=== PATIENT | female | born 1945 | race Caucasian/White ===

== ENCOUNTER 2016-10-09 11:31 | Inpatient (IN) | payer OTHER ==
[~2016-10-09] VITALS: Ht 160 cm; Wt 59.9 kg
[~2016-10-09 11:31] MED LIST: ACET-2619 PO; ATOR10TA PO; ATRN INH; BISA10SU1 RC; BUDE0.5S NEB; CARV25TA PO; CLOP75TA PO; CLOT21CR6 VG; DEXT40GE PO; FOLI1TAB19 PO; FURO-570 PO; GLUC1PDS1 IM; LEVEMIR SUBQ; LEVO5SOL4 IV; LOSA100T25 PO; MAGN400S60 PO; METF500T64 PO; MULT-298 PO; NA P135N9 RC; POTA10TA10 PO; [UNRECOGNIZED DRUG - OTHER] SUBQ
--- NOTE | 2016-10-09 11:32 | NUR ---
PT PLACED IN BED 6 BY EMS
[2016-10-09] MEDS ORDERED: NACL 0.9% 500 ML IV ONE ×2 (11:37→12:45)
[2016-10-09 11:41] VITALS: BP 124/52
--- NOTE | 2016-10-09 11:57 | NUR ---
Patient being evaluated by physician at bedside.
[2016-10-09 12:12] LABS: BASOPHILS # (AUTO) 0.2 K/uL (0.00-0.22); BASOPHILS % (AUTO) 3.6 % (0.0-2.0); EOSINOPHILS # (AUTO) 0.2 K/uL (0-0.4); EOSINOPHILS % (AUTO) 2.3 % (0.0-4.0); HEMATOCRIT 33.9 % (36-48); LYMPHOCYTES % (AUTO) 29.1 % (20.5-51.1); MEAN CORPUSCULAR HEMOGLOBIN 28 pg (27-31); MEAN CORPUSCULAR HGB CONC 33 g/dL (33-37); MEAN CORPUSCULAR VOLUME 85 fL (80-94); MONOCYTES # (AUTO) 0.3 K/uL (0.8-1.0); NEUTROPHILS # (AUTO) 4.2 K/uL (1.8-7.7); PLATELET COUNT (AUTO) 391 K/uL (140-450); RED CELL DISTRIBUTION WIDTH 13.6 % (11.6-13.7); WHITE BLOOD COUNT (AUTO) 6.9 K/uL (4.8-10.8)
--- NOTE | 2016-10-09 12:33 | NUR ---
Patient appears to be resting comfortably in bed. BP 86/40 , P 86, R 18 O2 SAT 99&% Respirations even and unlabored. NOTIFIED ER MD DR SUAZO; AWARE. WILL CONTINUE TO MONITOR
[2016-10-09] MEDS ORDERED: NACL 0.9% 1,000 ML IV ONE (12:35)
[2016-10-09 12:36] LABS: ANION GAP 17.7 (8-16); CALCIUM 8.9 mg/dL (8.5-10.1); CARBON DIOXIDE 25.8 mmol/L (21-32); CHLORIDE 99 mmol/L (98-107); CREATININE 1.3 mg/dL (0.6-1.3); GLUCOSE 299 mg/dL (74-106); POTASSIUM 4.5 mmol/L (3.5-5.1); SODIUM SERUM 138 mmol/L (136-145); UREA NITROGEN, BLOOD 39 mg/dL (7-18)
[2016-10-09 12:37] LABS: ACETONE, SERUM TRACE (NEGATIVE)
[2016-10-09 12:37] LABS: BLOOD GAS HCO3 21.5 mmol/L; BLOOD GAS PCO2 32.2 mmHg (20-50); BLOOD GAS PH 7.442 (7.35-7.45); BLOOD GAS PO2 79.8 mmHg
[2016-10-09 12:38] LABS: BLOOD GAS O2 SAT% 96.3 % (92.0-98.5)
--- NOTE | 2016-10-09 12:38 | NUR ---
RECEIVED REPORT CRITICAL LAB FROM AMAYA ; LACTIC ACID H5.5, ACETONE + 3; ER MD DR SUAZO NOTIFIED.
[2016-10-09 12:40] LABS: ALANINE AMINOTRANSFERASE 19 U/L (12-78); ALKALINE PHOSPHATASE 97 U/L (46-116); ASPARTATE AMINOTRANSFERASE 13 U/L (15-37); TOTAL BILIRUBIN 0.2 mg/dL (0.0-1.0); TOTAL PROTEIN, SERUM 7.3 g/dL (6.4-8.2)
--- NOTE | 2016-10-09 13:35 | NUR ---
71 YO FEMALE BIB EMS FROM [facility] FOR HIGH BLOOD SUGAR. AWAKE AND ALERT ON ARRIVAL BS 316 DENIES N/V/D; SKIN IS PINK/WARM/DRY; AAOX4 WITH EVEN AND STEADY GAIT; LUNGS CLEAR BL; HR EVEN AND REGULAR; PT DENIES ANY FEVER, CP, SOB, OR COUGH AT THIS TIME; PATIENT STATES PAIN OF 0/10 AT THIS TIME; PATIENT POSITIONED FOR COMFORT; HOB ELEVATED; BEDRAILS UP X2; BED DOWN. ER MD MADE AWARE OF PT STATUS.
--- NOTE | 2016-10-09 14:51 | NUR ---
CALLED TO REPORT PT. RN WILL CALL BACK.
--- NOTE | 2016-10-09 14:57 | NUR ---
Patient will be admitted to care of DR Jude TORRES. Admited to TELE. Will go to [id number]. Belongings list completed. Report to JOSE L GRAY.
[2016-10-09 15:30] VITALS: BP 108/50
[2016-10-09] MEDS ORDERED: ACETAMINOPHEN 325 MG TAB PO PRN ×2 (15:45)
[2016-10-09] MEDS ORDERED: IPRATROPIUM 0.02% 0.5 MG/2.5 ML NEBU INH PRN (15:45)
[2016-10-09] MEDS ORDERED: GLUCAGON HUMAN RECOMBINANT 1 MG IM PRN (15:45)
[2016-10-09] MEDS ORDERED: BISACODYL 10 MG SUPP RC PRN (15:45)
[2016-10-09] MEDS ORDERED: SODIUM PHOSPHATE 118 ML ENEM RC PRN (15:45)
[2016-10-09] MEDS ORDERED: MAGNESIUM HYDROXIDE 2400 MG/30 ML UDC PO PRN (15:45)
[2016-10-09 15:50] LABS: APPEARANCE,URINE HAZY (CLEAR); BILIRUBIN,URINE NEGATIVE (NEGATIVE); BLOOD, URINE NEGATIVE (NEGATIVE); COLOR,URINE YELLOW (YELLOW); LEUKOCYTE ESTERASE ,URINE 2+ (NEGATIVE); NITRITE, URINE NEGATIVE (NEGATIVE); PROTEIN,URINE NEGATIVE (NEGATIVE); UGLUCOSE 1+ (NEGATIVE); UROBILINOGEN,URINE 0.2 EU/dL (0.2 - 1)
[2016-10-09] MEDS ORDERED: MORPHINE SULFATE 2 MG/ML SYR IVP PRN (15:55)
[2016-10-09] MEDS ORDERED: ONDANSETRON 4 MG/2 ML VIAL IVP PRN (15:55)
[2016-10-09] MEDS ORDERED: DEXTROSE 50% 50 ML SYR IVP PRN (15:55)
[2016-10-09] MEDS ORDERED: LORazepam 2 MG/ML VIAL IVP PRN (15:55)
[2016-10-09] MEDS ORDERED: HYDROcodone/APAP 5/325 MG 1 TAB TAB PO PRN (15:55)
--- NOTE | 2016-10-09 16:00 | NUR ---
Admitted from ED , with chief complaint of increased blood sugar TODAY AT THE SNF ([facility]). PT IS AAOX2-3. NO SOB NOTED. NO C/O PAIN AT THIS TIME. IV TO RT AC PATENT AND INTACT. CHEST CLEAR. ABDOMEN SOFT, BOWEL SOUNDS PRESENT. NO EDEMA NOTED. SKIN INTACT. WILL REPOSITION PT EVERY 2 HRS. PT IS A 71 y/o ,Female, Cooperative,oriented to call light, bed, phone,television, bathroom, smoking policy,visiting hours, procedures, ID bracelet on. Belongings list checked.
[2016-10-09 16:11] LABS: RBC,URINE NONE SEEN /HPF (0-5)
[2016-10-09 16:12] LABS: BACTERIA,URINE 2+ /HPF (None Seen); SQUAMOUS EPITHELIAL CELL,UR 0-3 (FEW) /LPF (0-3 (FEW)); WBC,URINE 60-80 /HPF (0-5); YEAST,URINE Moderate /HPF (None Seen)
[2016-10-09] MEDS ORDERED: GLUCAGON 1 MG VIAL IM PRN (16:15)
[2016-10-09] MEDS: BLOOD GLUCOSE MONITORING 1 DEV DEV FS SCH ×2 (16:30→21:09)
[2016-10-09] MEDS ORDERED: metFORMIN 500 MG TAB PO SCH (17:00)
[2016-10-09] MEDS: NACL 0.9% 1,000 ML IV SCH (17:45)
[2016-10-09] MEDS: INSULIN LISPRO SLIDING SCALE 100 UNITS/ML VIAL SUBQ PRN ×2 (17:49→21:08)
[2016-10-09] MEDS ORDERED: LEVOFLOXACIN 500 MG/D5W PREMIX 100 ML IV SCH (18:00)
--- NOTE | 2016-10-09 18:00 | NUR ---
PT SEEN BY DR. TORRES WITH NEW ORDERS.
--- NOTE | 2016-10-09 19:25 | NUR ---
PT AWAKE. NO SOB NOTED. NO COMPLAINTS MADE. ENDORSED TO NEXT SHIFT NURSE FOR CONTINUITY OF CARE.
--- NOTE | 2016-10-09 19:30 | NUR ---
RECEIVED PT AWAKE ON BED, ALERT AND ORIENTED BUT FORGETFUL, RT EYE BLIND SEC TO CATARACT, PLAN OF CARE DISCUSSED, SCD'S IN PLACE, SIDE RAILS UP AND BED ALARM ON, CALL LIGHT WITHIN REACH.
[2016-10-09] MEDS: BUDESONIDE 0.5 MG/2 ML NEBU INH SCH (19:59)
[2016-10-09 20:00] VITALS: BP 117/58
--- NOTE | 2016-10-09 20:30 | NUR ---
PT INCONTINENT WITH URINE, PERINEAL CARE DONE, ABLE TO TURN SELF FROM SIDE TO SIDE, KEPT CLEAN AND DRY, REPOSITION Q2H AND OFFLOAD PRESSURE AREAS, ALL NEEDS ATTENDED.
[2016-10-09] MEDS ORDERED: INSULIN DETEMIR 100 UNITS/ML 10 ML VIAL SUBQ SCH (21:00)
[2016-10-09] MEDS: CARVEDILOL 12.5 MG TAB PO SCH (21:06)
[2016-10-09] MEDS: ATORVASTATIN 20 MG TAB PO SCH (21:07)
[2016-10-09] MEDS: INSULIN DETEMIR 100 UNITS/ML 10 ML VIAL SUBQ SCH (21:09)
--- NOTE | 2016-10-09 21:10 | NUR ---
BLOOD SUGAR CHECKED WITH 287 RESULT, COVERAGE GIVEN, DUE MEDS GIVEN WITH EDUCATION PROVIDED, IVF INFUSING WELL.
[2016-10-10] VITALS: BP 102/48
--- NOTE | 2016-10-10 | NUR ---
PT SLEEPING ON AND OFF, VITAL SIGNS STABLE, DENIES ANY PAIN, NO SOB NOTED, INCONTINENT OF URINE, PERINEAL CARE DONE, IVF INFUSING WELL, CONTINUE TO MONITOR CLOSELY.
--- NOTE | 2016-10-10 01:30 | NUR ---
STILL AWAKE, ENCOURAGED TO GO TO SLEEP.
[2016-10-10] MEDS: NACL 0.9% 1,000 ML IV SCH ×4 (01:51→21:51)
--- NOTE | 2016-10-10 04:00 | NUR ---
PT ROUNDS MADE, PT SLEEPING, NO SIGNS OF DISTRESS, MONITORED CLOSELY.
--- NOTE | 2016-10-10 05:32 | NUR ---
BLOOD SUGAR CHECKED WITH 20 RESULT, PT VERBALLY RESPONSIVE, D50 1 AMP IVP GIVEN, ORANGE JUICE X1 CONSUMED BY PT, WILL RECHECKED BLOOD SUGAR, MONITORED CLOSELY.
--- NOTE | 2016-10-10 06:36 | NUR ---
REPEAT BLOOD SUGAR CHECKED DONE WITH 174 RESULT, PT EASILY AROUSABLE, VERBALLY RESPONSIVE, MONITORED CLOSELY.
[2016-10-10] MEDS: BLOOD GLUCOSE MONITORING 1 DEV DEV FS SCH ×4 (06:41→20:59)
[2016-10-10] MEDS: BUDESONIDE 0.5 MG/2 ML NEBU INH SCH ×2 (06:51→19:35)
--- NOTE | 2016-10-10 06:51 | NUR ---
PT REFUSED BREATHING TX NO SIGNS OF DISTRESS NOTED AT THIS TIME JOSE L NEAL NOTIFIED
[2016-10-10 06:54] LABS: BASOPHILS # (AUTO) 0.3 K/uL (0.00-0.22); BASOPHILS % (AUTO) 4.4 % (0.0-2.0); EOSINOPHILS # (AUTO) 0.4 K/uL (0-0.4); EOSINOPHILS % (AUTO) 4.9 % (0.0-4.0); HEMATOCRIT 32.9 % (36-48); HEMOGLOBIN 10.6 g/dL (12.0-16.0); LYMPHOCYTES # (AUTO) 2.8 K/uL (2.5-16.5); LYMPHOCYTES % (AUTO) 38.8 % (20.5-51.1); MEAN CORPUSCULAR HEMOGLOBIN 27 pg (27-31); MEAN CORPUSCULAR HGB CONC 32 g/dL (33-37); MEAN CORPUSCULAR VOLUME 84 fL (80-94); MONOCYTES # (AUTO) 0.6 K/uL (0.8-1.0); MONOCYTES % (AUTO) 7.7 % (1.7-9.3); NEUTROPHILS # (AUTO) 3.1 K/uL (1.8-7.7); NEUTROPHILS % (AUTO) 44.2 % (42.2-75.2); PLATELET COUNT (AUTO) 426 K/uL (140-450); RED BLOOD CELL COUNT(AUTO) 3.91 MIL/uL (4.20-5.40); RED CELL DISTRIBUTION WIDTH 13.4 % (11.6-13.7); WHITE BLOOD COUNT (AUTO) 7.2 K/uL (4.8-10.8)
--- NOTE | 2016-10-10 06:58 | NUR ---
PT REFUSED DUE BREATHING TX PER RT, RISK AND BENEFITS EXPLAINED, NO SOB NOTED, WILL ENDORSE TO AM SHIFT.
--- NOTE | 2016-10-10 07:15 | NUR ---
PT SLEEPING, EASILY AROUSABLE, NO DISTRESS NOTED, REPORT GIVEN TO RN ISAAC FOR CONTINUITY OF CARE.
[2016-10-10 07:28] LABS: ANION GAP 12.3 (8-16); CARBON DIOXIDE 26.3 mmol/L (21-32); CHLORIDE 109 mmol/L (98-107); CREATININE 0.7 mg/dL (0.6-1.3); POTASSIUM 3.6 mmol/L (3.5-5.1); SODIUM SERUM 144 mmol/L (136-145); UREA NITROGEN, BLOOD 21 mg/dL (7-18)
--- NOTE | 2016-10-10 07:30 | NUR ---
RECEIVED PT ON BED AAO WITH PERIODS OF CONFUSION. NO SOB NOTED. NO C/O PAIN AT THIS TIME. IV TO RT AC PATENT AND INTACT. CHEST DIMINISHED AIR ENTRY TO THE BASES. ABDOMEN SOFT, BOWEL SOUNDS PRESENT. NO EDEMA NOTED. SCD'S IN PLACE. INSTRUCTED PT TO CALL FOR ASSISTANCE, CALL LIGHT WITHIN REACH. PT VERBALIZED PARTIAL UNDERSTANDING.
[2016-10-10 08:00] VITALS: BP 113/54
[2016-10-10] MEDS: metFORMIN 500 MG TAB PO SCH ×2 (08:00→17:00)
[2016-10-10 08:16] LABS: GLUCOSE 21 mg/dL (74-106)
[2016-10-10] MEDS: LOSARTAN 50 MG TAB PO SCH (09:00)
[2016-10-10] MEDS ORDERED: POTASSIUM CHLORIDE 10 MEQ TABER PO SCH (09:00)
[2016-10-10] MEDS: CARVEDILOL 12.5 MG TAB PO SCH ×2 (09:00→20:59)
[2016-10-10] MEDS: FUROSEMIDE 40 MG TAB PO SCH (09:00)
[2016-10-10] MEDS ORDERED: NON-FORMULARY ITEM (Losartan Potassium 1 TAB) PO SCH (09:00)
[2016-10-10] MEDS: INSULIN DETEMIR 100 UNITS/ML 10 ML VIAL SUBQ SCH ×2 (09:00→21:00)
[2016-10-10] MEDS ORDERED: PIGGYBACK IV SCH (09:00)
[2016-10-10] MEDS ORDERED: CLOTRIMAZOLE (VAG) 1% 45 GM TUBE VG SCH (09:00)
[2016-10-10] MEDS ORDERED: LEVOFLOXACIN IV SCH (09:00)
[2016-10-10] MEDS ORDERED: DEXT 5% IV SCH (09:00)
--- NOTE | 2016-10-10 09:21 | NUR ---
PATIENT HAS BEEN SCREENED AND CATEGORIZED MODERATE NUTRITION RISK. PATIENT WILL BE SEEN WITHIN 3-5 DAYS OF ADMISSION. 10/12/16-10/14/[address] Addendum: 10/10/16 at [address] ERROR PATIENT HAS BEEN SCREENED AND CATEGORIZED HIGH NUTRITION RISK. PATIENT WILL BE SEEN WITHIN 1-2 DAYS OF ADMISSION. 10/10/16-10/11/[address]
[2016-10-10] MEDS: MULTIVITAMIN 1 TAB PO SCH (09:56)
[2016-10-10] MEDS: CALCIUM CARB/VIT-D 500 MG/200 IU 1 TAB PO SCH (09:57)
[2016-10-10] MEDS: FOLIC ACID 1 MG TAB PO SCH (09:57)
[2016-10-10] MEDS: CLOPIDOGREL 75 MG TAB PO SCH (09:57)
[2016-10-10] MEDS: POTASSIUM CHLORIDE 10 MEQ TABER PO SCH (09:57)
--- NOTE | 2016-10-10 11:43 | NUR ---
CALLED PT'S NEXT OF KIN GWYN STANTON( [phone]), NO ANSWER. VOICE MESSAGE LEFT. AWAITING FOR CALL BACK. ALSO CALLED JASON MAXIMINO ([phone]), NO ANSWER, VOICEMAIL BOX FULL UNABLE TO LEAVE VM. Addendum: 10/10/16 at 1254 by Allegra Chau RN DISREGARD ABOVE NOTES. WRONG PT.
[2016-10-10] MEDS: INSULIN LISPRO SLIDING SCALE 100 UNITS/ML VIAL SUBQ PRN ×3 (12:31→21:01)
--- NOTE | 2016-10-10 13:05 | NUR ---
SS NOTE: I SPOKE WITH PT'S SON, SURI REGARDING PT'S D/C PLAN. HE STATED THAT HE WOULD LIKE PT TO RETURN TO [facility] [place] [place] UPON DISCHARGE. HE ALSO STATED THAT HE WILL BE OUT OF TOWN FOR A CONFERENCE SO HIS , GLEN MEDELLIN ([phone]) CAN BE CONTACTED FOR CONSENT OR INFORMATION IF HE DOES NOT ANSWER HIS PHONE.
[2016-10-10 16:00] VITALS: BP_SYST 139; BP_SYST 145; BP_DIAS 61; BP_DIAS 81
[2016-10-10] MEDS: LEVOFLOXACIN 250 MG/D5 PREMIX 50 ML IV SCH (18:02)
--- NOTE | 2016-10-10 18:15 | NUR ---
PT'S IV CAME OFF WILL RESTART A NEW IV LINE SOON POSSIBLE.
--- NOTE | 2016-10-10 19:00 | NUR ---
UNABLE TO GET A NEW IV LINE, TRIED 3X BUT UNSUCCESSFUL. PT AWAKE. NO COMPLAINTS MADE. WILL ENDORSE TO NEXT SHIFT NURSE FOR CONTINUITY OF CARE.
--- NOTE | 2016-10-10 19:20 | NUR ---
RECD. RESTING IN BED, AWAKE, A/OX1, FORGETFUL. REORIENTED TO HOSPITAL SETTING. PLAN OF CARE FOR THE SHIFT DISCUSSED. INSTRUCTED TO CALL NURSE WHENEVER NEEDING HELP. VERBALIZED UNDERSTANDING. SAFETY MEASURES ENFORCED. DENIES PAIN 0/10.
--- NOTE | 2016-10-10 20:00 | NUR ---
Patient's Plan of Care was discussed and reviewed with FACILITIES PLANNER: DAVID LEE
--- NOTE | 2016-10-10 20:45 | NUR ---
NEW IV LINE INSERTED BY RESOURCE NURSE SHERLEY AT THE RIGHT FOREARM G22.
[2016-10-10] MEDS: ATORVASTATIN 20 MG TAB PO SCH (20:58)
--- NOTE | 2016-10-10 23:00 | NUR ---
TRANSFERRED TO ROOM 124A.
[2016-10-11] VITALS: BP 142/66
--- NOTE | 2016-10-11 02:30 | NUR ---
SLEEPING COMFORTABLY IN BED.
[2016-10-11] MEDS: BLOOD GLUCOSE MONITORING 1 DEV DEV FS SCH ×4 (06:38→21:45)
[2016-10-11] MEDS: INSULIN LISPRO SLIDING SCALE 100 UNITS/ML VIAL SUBQ PRN ×2 (06:40→12:07)
[2016-10-11 06:54] LABS: ANION GAP 15.1 (8-16); CALCIUM 7.5 mg/dL (8.5-10.1); CARBON DIOXIDE 22.3 mmol/L (21-32); CHLORIDE 106 mmol/L (98-107); CREATININE 0.7 mg/dL (0.6-1.3); GLUCOSE 378 mg/dL (74-106); POTASSIUM 4.4 mmol/L (3.5-5.1); SODIUM SERUM 139 mmol/L (136-145); UREA NITROGEN, BLOOD 15 mg/dL (7-18)
[2016-10-11 06:58] LABS: BASOPHILS # (AUTO) 0.1 K/uL (0.00-0.22); BASOPHILS % (AUTO) 2.4 % (0.0-2.0); EOSINOPHILS # (AUTO) 0.2 K/uL (0-0.4); EOSINOPHILS % (AUTO) 3.5 % (0.0-4.0); HEMATOCRIT 30.6 % (36-48); HEMOGLOBIN 9.8 g/dL (12.0-16.0); LYMPHOCYTES # (AUTO) 1.9 K/uL (2.5-16.5); LYMPHOCYTES % (AUTO) 31.4 % (20.5-51.1); MEAN CORPUSCULAR HEMOGLOBIN 27 pg (27-31); MEAN CORPUSCULAR HGB CONC 32 g/dL (33-37); MEAN CORPUSCULAR VOLUME 86 fL (80-94); MONOCYTES # (AUTO) 0.5 K/uL (0.8-1.0); MONOCYTES % (AUTO) 7.8 % (1.7-9.3); NEUTROPHILS # (AUTO) 3.3 K/uL (1.8-7.7); NEUTROPHILS % (AUTO) 54.9 % (42.2-75.2); PLATELET COUNT (AUTO) 300 K/uL (140-450); RED BLOOD CELL COUNT(AUTO) 3.58 MIL/uL (4.20-5.40); RED CELL DISTRIBUTION WIDTH 13.7 % (11.6-13.7)
[2016-10-11] MEDS: BUDESONIDE 0.5 MG/2 ML NEBU INH SCH ×2 (06:59→19:31)
--- NOTE | 2016-10-11 07:00 | NUR ---
AWAKE IN BED, CONDITION REMAIN STABLE. WILL ENDORSE TO AM NURSE FOR CONTINUITY OF CARE.
--- NOTE | 2016-10-11 07:03 | NUR ---
PT REFUSED BREATHING TX AND SAID SHE DOESN'T NEED IT. PT CURRENTLY ON RA SPO2 98%.
--- NOTE | 2016-10-11 07:10 | NUR ---
RECEIVED PATIENT REPORT AT BEDSIDE. PATIENT AWAKE AND ALERT. NO S/S OF DISTRESS NOTED. NO C/O OF PAIN. IV NOTED TO THE RIGHT FA WITH IVF INFUSING WELL. BED LOWERED WITH CALL LIGHT WITHIN REACH. WILL CONTINUE TO MONITOR
[2016-10-11 08:00] VITALS: BP 108/52
[2016-10-11] MEDS: POTASSIUM CHLORIDE 10 MEQ TABER PO SCH (09:00)
[2016-10-11] MEDS: FUROSEMIDE 40 MG TAB PO SCH (09:00)
[2016-10-11] MEDS: CARVEDILOL 12.5 MG TAB PO SCH ×2 (09:00→21:48)
[2016-10-11] MEDS: LOSARTAN 50 MG TAB PO SCH (09:00)
--- NOTE | 2016-10-11 09:00 | NUR ---
BP MEDS HELD DUE TO DECREASED BP. WILL REASSESS
[2016-10-11] MEDS: FOLIC ACID 1 MG TAB PO SCH (09:02)
[2016-10-11] MEDS: CALCIUM CARB/VIT-D 500 MG/200 IU 1 TAB PO SCH (09:03)
[2016-10-11] MEDS: metFORMIN 500 MG TAB PO SCH ×2 (09:03→17:00)
[2016-10-11] MEDS: MULTIVITAMIN 1 TAB PO SCH (09:04)
[2016-10-11] MEDS: CLOPIDOGREL 75 MG TAB PO SCH (09:05)
[2016-10-11] MEDS: INSULIN DETEMIR 100 UNITS/ML 10 ML VIAL SUBQ SCH ×2 (09:08→21:00)
--- NOTE | 2016-10-11 10:51 | NUR ---
PAGED DR MARTINEZ. WAITING FOR CALL BACK
--- NOTE | 2016-10-11 10:56 | NUR ---
PER DR MARTINEZ, SHE IS UNSURE IF SHE CAN SEE THE PATIENT TODAY BUT SHE WILL DEFINITELY SEE THE PATIENT TOMORROW
[2016-10-11] MEDS: NACL 0.9% 1,000 ML IV SCH ×3 (11:43→23:25)
--- NOTE | 2016-10-11 14:31 | NUR ---
10/11/16 RD INITIAL ASSESSMENT COMPLETED PLEASE REFER TO NUTRITION ASSESSMENT UNDER CARE ACTIVITY FOR ESTIMATED NUTRITIONAL NEEDS. 1. CONTINUE 60G CONSISTENT CARBOHYDRATE, CARDIAC DIET 2. RD TO FOLLOW-UP 3-5 DAYS; MODERATE RISK JULIEN KING RD
[2016-10-11 16:00] VITALS: BP 130/67
--- NOTE | 2016-10-11 17:00 | NUR ---
BLOOD SUGAR 44. PATIENT AWAKE AND ALERT. NO S/S OF DISTRESS NOTED. PATIENT REFUSE TO HAVE D50. RISK OF HAVING LOW BLOOD SUGAR EXPLAINED TO THE PATIENT. PATIENT VERBALIZED UNDERSTANDING. PATIENT REQUESTED TO HAVE JUICE INSTEAD. PATIENT PROVIDED WITH ORANGE JUICE. WILL REASSESS
--- NOTE | 2016-10-11 17:35 | NUR ---
BLOOD SUGAR AT 78. NO S/S OF DISTRESS NOTED
[2016-10-11] MEDS: LEVOFLOXACIN 250 MG/D5 PREMIX 50 ML IV SCH (18:01)
--- NOTE | 2016-10-11 19:30 | NUR ---
PATIENT REPORT GIVEN AT BEDSIDE. PATIENT ENDORSED IN STABLE CONDITION
--- NOTE | 2016-10-11 19:40 | NUR ---
RECEIVED BEDSIDE REPORT FROM YAMIL DOMINGO. PATIENT IS AAOX2 AND RESTING IN BED. NO SIGNS OF ACUTE DISTRESS OR SOB NOTED. PATIENT IS LEGALLY BLIND IN RIGHT EYE. THERE IS A #22 IN THE PATIENT'S RIGHT FOREARM RECEIVING NORMAL SALINE AT 100 ML/HR. SITE IS DRY, INTACT, AND PATENT. THERE ARE SCDS IN PLACE FOR VTE PROPHYLAXIS. PATIENT'S NEEDS MET AT THIS TIME. SAFETY MEASURES ENFORCED, WITH CALL LIGHT WITHIN PATIENT'S REACH. WILL CONTINUE TO MONITOR PATIENT.
[2016-10-11] MEDS: ATORVASTATIN 20 MG TAB PO SCH (21:48)
--- NOTE | 2016-10-11 21:53 | NUR ---
PATIENT TOLERATED DUE MEDICATIONS. BLOOD SUGAR IS 137. EXPLAINED INDICATIONS AND BENEFITS OF LEVEMIR. PATIENT REFUSED SCHEDULED LEVEMIR SUBQ. PATIENT'S NEEDS MET AT THSI TIME. CALL LIGHT WITHIN REACH. CONTINUE TO MONITOR PATIENT.
--- NOTE | 2016-10-11 22:32 | NUR ---
PATIENT VOIDED MODERATE AMOUNT OF CLEAR YELLOW URINE OF NORMAL ODOR. PERINEAL CARE PROVIDED. PATIENT ABLE TO SELF REPOSITION HERSELF FOR COMFORT. PATIENT'S NEEDS MET AT THIS TIME. CALL LIGHT WITHIN REACH. CONTINUE TO MONITOR PATIENT.
[2016-10-12] VITALS: BP 121/56
--- NOTE | 2016-10-12 | NUR ---
PATIENT RESTING COMFORTABLY IN BED, BUT CAN BE AROUSED BY NAME. VITAL SIGNS ARE STABLE. NO REPORTS OF PAIN OR DISCOMFORT AT THIS TIME. CALL LIGHT WITHIN REACH. CONTINUE TO MONITOR PATIENT.
--- NOTE | 2016-10-12 02:00 | NUR ---
PATIENT IS RESTING COMFORTABLY IN BED WITH NO S/S OF ACUTE DISTRESS OR SOB NOTED. SAFETY MEASURES ENFORCED, WITH CALL LIGHT WITHIN REACH. CONTINUE TO MONITOR PATIENT.
--- NOTE | 2016-10-12 03:30 | NUR ---
ROUNDED ON PATIENT. PATIENT IS RESTING COMFORTABLY IN BED WITH NO SIGNS OF DISTRESS NOTED. CALL LIGHT WITHIN REACH. CONTINUE TO MONITOR PATIENT.
--- NOTE | 2016-10-12 04:50 | NUR ---
PATIENT VOIDED MODERATE AMOUNT OF CLEAR YELLOW URINE. PERINEAL CARE PROVIDED. REPOSITIONED PATIENT FOR COMFORT. PATIENT'S NEEDS MET AT THIS TIME. CALL LIGHT WITHIN REACH. CONTINUE TO MONITOR PATIENT.
[2016-10-12 06:08] LABS: BASOPHILS # (AUTO) 0.2 K/uL (0.00-0.22); BASOPHILS % (AUTO) 3.6 % (0.0-2.0); EOSINOPHILS # (AUTO) 0.3 K/uL (0-0.4); EOSINOPHILS % (AUTO) 6.2 % (0.0-4.0); HEMATOCRIT 29.6 % (36-48); HEMOGLOBIN 9.3 g/dL (12.0-16.0); LYMPHOCYTES # (AUTO) 2.5 K/uL (2.5-16.5); LYMPHOCYTES % (AUTO) 42.6 % (20.5-51.1); MEAN CORPUSCULAR HEMOGLOBIN 27 pg (27-31); MEAN CORPUSCULAR HGB CONC 31 g/dL (33-37); MEAN CORPUSCULAR VOLUME 86 fL (80-94); MONOCYTES # (AUTO) 0.4 K/uL (0.8-1.0); MONOCYTES % (AUTO) 7.9 % (1.7-9.3); NEUTROPHILS # (AUTO) 2.2 K/uL (1.8-7.7); NEUTROPHILS % (AUTO) 39.7 % (42.2-75.2); PLATELET COUNT (AUTO) 303 K/uL (140-450); RED BLOOD CELL COUNT(AUTO) 3.46 MIL/uL (4.20-5.40); RED CELL DISTRIBUTION WIDTH 13.6 % (11.6-13.7); WHITE BLOOD COUNT (AUTO) 5.6 K/uL (4.8-10.8)
[2016-10-12 06:33] LABS: ANION GAP 8.6 (8-16); CALCIUM 7.3 mg/dL (8.5-10.1); CHLORIDE 112 mmol/L (98-107); CREATININE 0.5 mg/dL (0.6-1.3); GLUCOSE 52 mg/dL (74-106); POTASSIUM 3.6 mmol/L (3.5-5.1); SODIUM SERUM 144 mmol/L (136-145); UREA NITROGEN, BLOOD 10 mg/dL (7-18)
[2016-10-12] MEDS: BLOOD GLUCOSE MONITORING 1 DEV DEV FS SCH ×4 (06:39→21:19)
--- NOTE | 2016-10-12 06:40 | NUR ---
PATIENT'S BLOOD SUGAR IS 66. NO INSULIN COVERAGE NEEDED AT THIS TIME. OFFERED PATIENT SNACK. PATIENT ACCEPTED MED CRACKERS, MILK, AND APPLE SAUCE. TOLERATED WELL. NO S/S OF DISTRESS OR SOB NOTED. CALL LIGHT WITHIN REACH. CONTINUE TO MONITOR PATIENT.
--- NOTE | 2016-10-12 07:08 | NUR ---
PATIENT IN STABLE CONDITION. ALL NEEDS ATTENDED TO DURING SHIFT. ENDORSED CONTINUITY OF CARE TO BRIGID DOMINGO.
--- NOTE | 2016-10-12 07:10 | NUR ---
RECEIVED PT REPORT AT BEDSIDE FROM NIGHT NURSE. PT IS AAOX4 AND SHOWS NO S/S OF DISTRESS ON ROOM AIR. PT DENIES PAIN. PT'S SKIN IS INTACT. PT HAS IV ON THE R ARM WITH IVF'S RUNNING. PT WAS EDUCATED ON THE POC FOR TODAY AND VERBALIZED UNDERSTANDING. THE BED IS LOWERED WITH CALL LIGHT WITHIN REACH. WILL CONTINUE TO MONITOR.
[2016-10-12] MEDS: BUDESONIDE 0.5 MG/2 ML NEBU INH SCH ×2 (07:25→18:47)
[2016-10-12 08:00] VITALS: BP 142/74
[2016-10-12] MEDS: FUROSEMIDE 40 MG TAB PO SCH (08:25)
[2016-10-12] MEDS: CALCIUM CARB/VIT-D 500 MG/200 IU 1 TAB PO SCH (08:25)
[2016-10-12] MEDS: metFORMIN 500 MG TAB PO SCH (08:25)
--- NOTE | 2016-10-12 08:25 | NUR ---
ADMINISTERED SCHEDULED MEDICATIONS. PT BS WAS 244. PT SWALLOWED ONE MEDICATION AT A TIME. PT TOLERATED ACTIVITY WELL. WILL CONTINUE TO MONITOR.
[2016-10-12] MEDS: FOLIC ACID 1 MG TAB PO SCH (08:26)
[2016-10-12] MEDS: MULTIVITAMIN 1 TAB PO SCH (08:26)
[2016-10-12] MEDS: LOSARTAN 50 MG TAB PO SCH (08:26)
[2016-10-12] MEDS: POTASSIUM CHLORIDE 8 MEQ TABER PO SCH (08:26)
[2016-10-12] MEDS: CLOPIDOGREL 75 MG TAB PO SCH (08:27)
[2016-10-12] MEDS: CARVEDILOL 12.5 MG TAB PO SCH ×2 (08:27→21:18)
[2016-10-12] MEDS ORDERED: INSULIN DETEMIR 100 UNITS/ML 10 ML VIAL SUBQ SCH (09:00)
[2016-10-12] MEDS ORDERED: ALENDRONATE SODIUM 70 MG TAB PO SCH (09:00)
[2016-10-12] MEDS: NACL 0.9% 1,000 ML IV SCH ×2 (10:00→21:28)
--- NOTE | 2016-10-12 10:32 | NUR ---
PT IS IN BED SLEEPING AND SHOWS NO S/S OF DISTRESS ON ROOM AIR.
--- NOTE | 2016-10-12 11:30 | NUR ---
PT IS INCONTINENT OF URINE. PT BED LINENS WERE CHANGED. PT WAS GIVEN PERINEAL CARE. ALL NEEDS WERE MET. PT TOLERATED ACTIVITY WELL. THE BED IS LOWERED WITH CALL LIGHT WITHIN REACH. PT IS DOING A WORD SEARCH PUZZLE NOW AND SHOWS NO S/S OF DISTRESS ON ROOM AIR.
[2016-10-12] MEDS: INSULIN LISPRO SLIDING SCALE 100 UNITS/ML VIAL SUBQ PRN (12:12)
--- NOTE | 2016-10-12 12:20 | NUR ---
PT SITTING COMFORTABLY IN BED EATING LUNCH. PT'S BED IS LOWERED WITH CALL LIGHT WITHIN REACH. WILL CONTINUE TO MONITOR.
--- NOTE | 2016-10-12 12:30 | NUR ---
PAGED DR MARTINEZ REGARDING TIME OF ARRIVAL ONTO UNIT. WILL WAIT FOR CALL BACK.
--- NOTE | 2016-10-12 13:20 | NUR ---
PT BEING SEEN BY DR. ART.
--- NOTE | 2016-10-12 15:15 | NUR ---
PT IS IN ROOM SLEEPING AND SHOWS NO S/S OF DISTRESS ON ROOM AIR.
[2016-10-12 16:00] VITALS: BP 130/66
--- NOTE | 2016-10-12 16:45 | NUR ---
PT IS AWAKE AOX4 AND SHOWS NO S/S OF DISTRESS ON ROOM AIR. PT IS WATCHING TV AND HAS CALL LIGHT WITHIN REACH. ALL NEEDS FOR PT WERE MET. PT BED IS LOWERED. WILL CONTINUE TO MONITOR.
[2016-10-12] MEDS: LEVOFLOXACIN 250 MG/D5 PREMIX 50 ML IV SCH (18:11)
--- NOTE | 2016-10-12 18:18 | NUR ---
ADMINISTERED SCHEDULED MEDICATIONS. PT ALSO STATED SHE HAD NOT HAD A BM TODAY OR SINCE SHE WAS ADMITTED. MILK OF MAGNESIA WAS ADMINISTERED. ALL OF PT NEEDS WERE MET. PT IS AWAKE AOX4 AND SHOWS NO S/S OF DISTRESS NOTED ON ROOM AIR. PT BED IS LOWERED WITH CALL LIGHT WITHIN REACH.
--- NOTE | 2016-10-12 19:26 | NUR ---
GAVE REPORT TO NIGHT NURSE AT BEDSIDE. PT IS RESTING IN BED AND SHOWS NO S/S/ OF DISTRESS ON ROOM AIR. PT WAS ENDORSED IN STABLE CONDITION.
--- NOTE | 2016-10-12 19:50 | NUR ---
SEEN PT AWAKE, ALERT AND ORIENTED DOING CROSSWORD PUZZLE. INITIAL ASSESSMENT DONE. VITAL SIGNS CHECKED. PT DENIES ANY PAIN. PT ASKING WHAT IS HER ACTIVITY ORDER. TOLD HER WILL CHECK WHAT THE DOCTOR ORDERED. PT STATES SHE USES WALKER BEFORE. ASKED PT WHEN WAS THE LAST TIME SHE HAD BM. SHE SAID BEFORE SHE CAME. WILL CHECK FOR ANY PRN ANTI-CONSTIPATION MEDICINE. PT SAID SHE WAS GIVEN MOM EARLIER. SAFETY ENSURED. CALL LIGHT W/IN REACH. PT SAID SHE NEEDS TO BE CHANGED. PERICARE RENDERED. TEACHINGS PROVIDED ABOUT REPOSITIONING. PT SAID SHE CAN TURN ON HER RIGHT SIDE. ASSISTED PT ON HER RIGHT SIDE.
[2016-10-12 20:00] VITALS: BP 139/69
[2016-10-12] MEDS: ATORVASTATIN 20 MG TAB PO SCH (21:18)
--- NOTE | 2016-10-12 21:18 | NUR ---
SEEN PT AWAKE. BLOOD SUGAR CHECKED:75. PT SAID " I NEED SOME SNACKS." WILL GIVE PT HER BEDTIME SNACKS. MEDICATIONS GIVEN W/ TEACHINGS. PT VERBALIZED UNDERSTANDING. CALL LIGHT W/IN REACH.
--- NOTE | 2016-10-13 00:45 | NUR ---
PT CALLED AND SAID SHE WANTS DIAPER CHANGED. ROBERTO RIOS CAME TO RENDER PERICARE.
[2016-10-13 04:10] VITALS: BP 154/72
--- NOTE | 2016-10-13 04:15 | NUR ---
SEEN PT AWAKE. VITAL SIGNS CHECKED. PT DENIES ANY PAIN. PT STATES " I NEED TO BE CHANGED". PT AHD SMEAR OF BROWN STOOL. PT ALSO PASSING GAS. PERICARE RENDERED. PT REPOSITIONED ON HERT RT SIDE. ELLA;L LIGHT W/IN REACH.
[2016-10-13 06:00] LABS: BASOPHILS # (AUTO) 0.1 K/uL (0.00-0.22); BASOPHILS % (AUTO) 1.1 % (0.0-2.0); EOSINOPHILS # (AUTO) 0.3 K/uL (0-0.4); EOSINOPHILS % (AUTO) 3.9 % (0.0-4.0); HEMATOCRIT 27.7 % (36-48); HEMOGLOBIN 9.2 g/dL (12.0-16.0); LYMPHOCYTES # (AUTO) 2.4 K/uL (2.5-16.5); LYMPHOCYTES % (AUTO) 29.4 % (20.5-51.1); MEAN CORPUSCULAR HEMOGLOBIN 28 pg (27-31); MEAN CORPUSCULAR HGB CONC 33 g/dL (33-37); MEAN CORPUSCULAR VOLUME 85 fL (80-94); MONOCYTES # (AUTO) 0.6 K/uL (0.8-1.0); MONOCYTES % (AUTO) 7.5 % (1.7-9.3); NEUTROPHILS # (AUTO) 4.9 K/uL (1.8-7.7); NEUTROPHILS % (AUTO) 58.1 % (42.2-75.2); PLATELET COUNT (AUTO) 274 K/uL (140-450); RED BLOOD CELL COUNT(AUTO) 3.27 MIL/uL (4.20-5.40); RED CELL DISTRIBUTION WIDTH 13.4 % (11.6-13.7); WHITE BLOOD COUNT (AUTO) 8.3 K/uL (4.8-10.8)
[2016-10-13] MEDS ORDERED: ALENDRONATE SODIUM 70 MG TAB PO SCH (06:00)
--- NOTE | 2016-10-13 06:00 | NUR ---
PT CALLED AND WANTS TO BE CHANGED. ROBERTO RENDERED SMITHA CARE TO PATIENT.
[2016-10-13 06:32] LABS: ALANINE AMINOTRANSFERASE 16 U/L (12-78); ALBUMIN 2.1 g/dL (3.4-5.0); ALKALINE PHOSPHATASE 74 U/L (46-116); ANION GAP 10.8 (8-16); ASPARTATE AMINOTRANSFERASE 18 U/L (15-37); CALCIUM 7.4 mg/dL (8.5-10.1); CARBON DIOXIDE 25.5 mmol/L (21-32); CHLORIDE 110 mmol/L (98-107); CREATININE 0.7 mg/dL (0.6-1.3); GLUCOSE 71 mg/dL (74-106); POTASSIUM 4.3 mmol/L (3.5-5.1); SODIUM SERUM 142 mmol/L (136-145); TOTAL BILIRUBIN 0.1 mg/dL (0.0-1.0); TOTAL PROTEIN, SERUM 5.3 g/dL (6.4-8.2); UREA NITROGEN, BLOOD 11 mg/dL (7-18)
--- NOTE | 2016-10-13 06:50 | NUR ---
SEEN PT AWAKE. FOSAMAX PO GIVEN W/ TEACHINGS. PT AWAITING FOR HER BREAKFAST TRAY. PT DENIES ANY OTHER NEEDS. CALL LIGHT W/IN REACH.
[2016-10-13] MEDS: BUDESONIDE 0.5 MG/2 ML NEBU INH SCH ×2 (07:09→19:40)
--- NOTE | 2016-10-13 07:30 | NUR ---
PATIENT AWAKE AND ALERT, DENIES PAIN, LYING IN BED IN COMFORTABLE POSITION.
[2016-10-13] MEDS: BLOOD GLUCOSE MONITORING 1 DEV DEV FS SCH ×3 (07:36→16:34)
--- NOTE | 2016-10-13 07:45 | NUR ---
REPORT GIVEN TO DAYSHIFT NURSE.
[2016-10-13 08:00] VITALS: BP 142/60
[2016-10-13] MEDS ORDERED: INSULIN DETEMIR 100 UNITS/ML 10 ML VIAL SUBQ SCH (09:00)
[2016-10-13] MEDS: FOLIC ACID 1 MG TAB PO SCH (09:30)
[2016-10-13] MEDS: FUROSEMIDE 40 MG TAB PO SCH (09:31)
[2016-10-13] MEDS: POTASSIUM CHLORIDE 8 MEQ TABER PO SCH (09:31)
[2016-10-13] MEDS: CALCIUM CARB/VIT-D 500 MG/200 IU 1 TAB PO SCH (09:31)
[2016-10-13] MEDS: MULTIVITAMIN 1 TAB PO SCH (09:31)
[2016-10-13] MEDS: LOSARTAN 50 MG TAB PO SCH (09:31)
[2016-10-13] MEDS: CARVEDILOL 12.5 MG TAB PO SCH (09:32)
[2016-10-13] MEDS: CLOPIDOGREL 75 MG TAB PO SCH (09:32)
[2016-10-13] MEDS: INSULIN LISPRO SLIDING SCALE 100 UNITS/ML VIAL SUBQ PRN ×3 (09:43→17:14)
[2016-10-13] MEDS: NACL 0.9% 1,000 ML IV SCH (10:32)
--- NOTE | 2016-10-13 11:53 | NUR ---
PATIENT SLEEPING, LYING IN BED COMFORTABLY
--- NOTE | 2016-10-13 13:31 | NUR ---
Social Service Note: I faxed patient's medical information to [facility].
--- NOTE | 2016-10-13 14:45 | NUR ---
I spoke with Atif regarding patient discharge back to [facility] today and education given as well regarding importance of hydration for his mother and better blood sugar control, and he verbalized understanding. he also request to speak with upper caser regarding transportation.
--- NOTE | 2016-10-13 14:46 | NUR ---
Social Service Note: Per [place] from [facility] , patient may return to room 11B, accepting physician is Ronald Cedillo, she stated patient may be transfer to their facility any time.
--- NOTE | 2016-10-13 15:04 | NUR ---
CM NOTE SPOKE WITH THE PATIENT'S SECONDARY INSURANCE [facility] September AND SHE SAID FOR [facility] AUTH# [id number]. SPOKE WITH PATIENT'S SON SURI [phone] AND INFORMED HIM THAT PATIENT HAS A SECONDARY INSURANCE WHO WILL COVER THE TRANSPORTATION TO SNF. SPOKE WITH JAK OF [facility] [phone] TO SET UP PATIENT TRANSPORT FINAL [employer] TIME 1830 GOING TO [facility], ACCEPTING DR. JUANCHO YADAV, NUMBER TO CALL FOR REPORT [phone]. NURSE WILLIAM MIX.
--- NOTE | 2016-10-13 15:10 | NUR ---
I spoke with Isabelle ulloa mgr regarding patient son Atif requesting to talk to her regarding transportation.
[2016-10-13 16:00] VITALS: BP 142/55
[2016-10-13] MEDS ORDERED: LEVO750T2 PO (16:10)
[2016-10-13] MEDS ORDERED: INSU-1188 SC (16:12)
[2016-10-13] MEDS: LEVOFLOXACIN 250 MG/D5 PREMIX 50 ML IV SCH (17:08)
--- NOTE | 2016-10-13 19:20 | NUR ---
SBAR REPORT GIVEN TO SALESPERSON FLOOR COVERINGS RN, PATIENT ALERT ORIENTED, PENDING DISCHARGE TO SNF, WAITING FOR THE TRANSPORTATION
--- NOTE | 2016-10-13 19:30 | NUR ---
RECEIVED REPORT FROM DAY RN AT BEDSIDE, PATIENT IS AWAKE AAOX3, FORGETFUL, PATIENT IN STABLE CONDITION, RESTING COMFORTABLE IN BED, PATIENT AWAITING HUMID SYSTEM OPERATOR FOR TRANSPORTATION TO SNF. SAFETY MEASURES CHECKED, CALL LIGHT WITHIN REACH. WILL CONTINUE TO MONITOR.
--- NOTE | 2016-10-13 20:15 | NUR ---
PATIENT PICKED UP FOR TRANSPORT TO SNF, IV REMOVED TIP IN TACT, WRIST BANDS REMOVED, PATIENT IN STABLE CONDITION. BELONGINGS IN POSSESSION, PAPERWORK SIGNED.
== END 2016-10-13 20:15 | DRG 637 ==
LOC: MED 11:31 → MTU 14:57
PROVIDERS: ADMIT Preventive Medicine Preventive Medicine/Occupational Environmental Medicine; ATTEND Preventive Medicine Preventive Medicine/Occupational Environmental Medicine
DX: E10.65 Type 1 diabetes mellitus with hyperglycemia (principal); E43 Unspecified severe protein-calorie malnutrition; N39.0 Urinary tract infection, site not specified; J44.9 Chronic obstructive pulmonary disease, unspecified; D64.9 Anemia, unspecified; E78.5 Hyperlipidemia, unspecified; E83.52 Hypercalcemia; H54.41 Blindness, right eye, normal vision left eye; I11.0 Hypertensive heart disease with heart failure; I50.9 Heart failure, unspecified; H35.30 Unspecified macular degeneration; I25.10 Atherosclerotic heart disease of native coronary artery without angina pectoris; Z88.6 Allergy status to analgesic agent; Z88.1 Allergy status to other antibiotic agents; Z88.8 Allergy status to other drugs, medicaments and biological substances; Z88.5 Allergy status to narcotic agent; Z88.0 Allergy status to penicillin; Z91.041 Radiographic dye allergy status; Z79.899 Other long term (current) drug therapy
CPT/HCPCS: 36415; 36600; 71010; 80048; 80053; 81001; 82009; 82803; 82948; 83605; 85025; 85651; 86140; 87040; 87081; 87086; 94640; 96360; 96361; 99291; J1815; J1956; J7030; J7042; J7626; Q0092

== ENCOUNTER 2018-09-03 22:00 | Emergency (ER) | payer OTHER ==
[~2018-09-03] VITALS: Ht 157.5 cm; Wt 68.0 kg
[~2018-09-03 22:00] MED LIST changes: +DEXT31GE2 PO; -DEXT40GE PO; +GLU500 PO; +INSU100S53 SC; -LEVEMIR SUBQ; +LEVO750T2 PO; -LOSA100T25 PO; +LOSA100T51 PO; -METF500T64 PO; -POTA10TA10 PO; +POTA10TE30 PO
[2018-09-03 22:06] VITALS: BP 143/53
--- NOTE | 2018-09-03 22:10 | NUR ---
72/F BIBA FROM [facility] FOR HYPERGLYCEMIA. PER EMS, PT WITH ELEVATED POC GLUCOSE TOO HIGH TO READ, WAS GIVEN 20 UNITS REGULAR INSULIN, LAST GLUCOSE 315. PT C/O MILD CONSTIPATION. PT DENIES FEVER, CP, SOB, N/V/D. PT ARRIVES TO ED, AOX4, GCS 15, SKIN NORMAL WARM DRY, RR EVEN AND UNLABORED. LUNG SOUNDS CLEAR BL. BS ACTIVE X4, ABD SOFT ROUND NONTENDER. HX CHF, HTN, DM, RESP FAILURE, AKF, ENTEROCOLITIS, R EYE DEGENERATION
--- NOTE | 2018-09-03 22:10 | NUR ---
PT BIBA TO BED 8
--- NOTE | 2018-09-03 22:11 | NUR ---
BLOOD GLUCOSE 319 AT THIS TIME.
[2018-09-03] MEDS ORDERED: NACL 0.9% 1,000 ML IV ONE (22:29)
[2018-09-03] MEDS ORDERED: SIME1SOL PO (22:34)
[2018-09-03] MEDS ORDERED: DOCU-299 PO (22:34)
[2018-09-03] MEDS ORDERED: LACT25CA PO (22:34)
[2018-09-03] MEDS ORDERED: ASCO500T45 PO (22:34)
[2018-09-03] MEDS ORDERED: INSU100S54 SC (22:34)
[2018-09-03] MEDS ORDERED: CRAN450T5 PO (22:34)
[2018-09-03 22:59] LABS: ANION GAP 10.7 (8-16); CARBON DIOXIDE 31.7 mmol/L (21-32); CHLORIDE 97 mmol/L (98-107); CREATININE 1.3 mg/dL (0.6-1.3); GLUCOSE 302 mg/dL (74-106); POTASSIUM 4.4 mmol/L (3.5-5.1); SODIUM SERUM 135 mmol/L (136-145); UREA NITROGEN, BLOOD 44 mg/dL (7-18)
--- NOTE | 2018-09-04 01:36 | NUR ---
PT LAYING IN BED, RR EVEN AND UNLABORED. VSS. BLOOD GLUCOSE 155 AT THIS TIME. PT PROVIDED WITH SUGAR FREE SNACKS AND WATER. DR KENDRICK MADE AWARE.
--- NOTE | 2018-09-04 03:47 | NUR ---
PT SLEEPING, AROUSABLE TO NAME, VSS, RR EVEN AND UNLABORED. BLOOD GLUCOSE 213 AT THIS TIME. ALL NEEDS MET.
--- NOTE | 2018-09-04 05:45 | NUR ---
CALLED [facility], GAVE REPORT, NOTIFIED THAT PT IS COMING BACK, ETA 30 MINS.
--- NOTE | 2018-09-04 06:00 | NUR ---
PT LAYING IN BED, RR EVEN AND UNLABORED. VSS. BLOOD GLUCOSE 319, DR KENDRICK MADE AWARE.
[2018-09-04] MEDS ORDERED: INSULIN REGULAR, HUMAN 100 UNIT/ML VIAL SUBQ ONE (06:05)
[2018-09-04] MEDS ORDERED: NACL 0.9% 1,000 ML IV ONE (06:05)
[2018-09-04 06:33] VITALS: BP 125/40
--- NOTE | 2018-09-04 06:33 | NUR ---
Patient discharged with v/s stable. Written and verbal after care instructions given and explained. Patient verbalized understanding. All questions addressed prior to discharge. Advised to follow up with PMD. Pt transferred back to [facility] via [facility] transport at this time.
--- NOTE | 2018-09-04 06:33 | NUR ---
BLOOD GLUCOSE 347 AT THIS TIME AFTER HUMULIN R 5 UNITS SUBQ AND 500ML NS IV BOLUS INFUSED, ER MD MADE AWARE. PER ER MD, OK FOR DISCHARGE
== END 2018-09-04 06:33 ==
LOC: MED 22:00
DX: E11.65 Type 2 diabetes mellitus with hyperglycemia (principal); E86.0 Dehydration; I11.0 Hypertensive heart disease with heart failure; I50.9 Heart failure, unspecified; Z79.4 Long term (current) use of insulin; Z79.899 Other long term (current) drug therapy; Z79.01 Long term (current) use of anticoagulants; Z88.5 Allergy status to narcotic agent; Z88.6 Allergy status to analgesic agent; Z79.1 Long term (current) use of non-steroidal anti-inflammatories (NSAID); Z88.8 Allergy status to other drugs, medicaments and biological substances
CPT/HCPCS: 36415; 80048; 82948; 99283; J1815; J7030

== ENCOUNTER 2019-05-21 19:21 | Inpatient (IN) | payer OTHER ==
[~2019-05-21] VITALS: Ht 157.5 cm; Wt 81.6 kg
[~2019-05-21 19:21] MED LIST changes: +ASCO500T45 PO; -ATRN INH; -BUDE0.5S NEB; +CRAN450T5 PO; -DEXT31GE2 PO; +DOCU-299 PO; -FOLI1TAB19 PO; -GLU500 PO; +INSU100S54 SC; +LACT25CA PO; -LEVO5SOL4 IV; -LEVO750T2 PO; -POTA10TE30 PO; +SIME1SOL PO
[2019-05-21 19:30] VITALS: BP 161/81
--- NOTE | 2019-05-21 19:31 | NUR ---
PT TO BED #8
--- NOTE | 2019-05-21 19:45 | NUR ---
73 YEAR OLD BIBA FROM [facility] FOR COMPLAINTS OF FLU-LIKE SYMPTOMS AND SHORTNESS OF BREATHE. PER EMS PT WAS PLACED ON 6L O2 NC AT 6L, AND THEY STATED THAT SHE NORMALLY IS NOT ON O2. PATIENT SPO2 95%, RR 18. PATIENT AOX3 (NAME, , YEAR), GCS 15. BREATHNG EVEN AND UNLABORED. PATIENT LUNGS CRACKLES BILATERALLY. SKIN WARM AND DRY. BED IN LOWEST OSITION, LOCKED, BED RAIL UPX1. PMH - HTN, DM2, AR, CP, RF, CHF, PNA, C-DIFF
--- NOTE | 2019-05-21 20:15 | NUR ---
TEMPERATURE 101.1, DR RODGERS MADE AWARE
[2019-05-21] MEDS ORDERED: NACL 0.9% IV ONE (20:23)
[2019-05-21] MEDS ORDERED: IBUPROFEN 600 MG TAB PO ONE (20:25)
--- NOTE | 2019-05-21 20:25 | NUR ---
PATIENT ALERT AND AWAKE, BREATHING EVEN AND UNLABORED
--- NOTE | 2019-05-21 21:03 | NUR ---
MULTIPLE ATTEMPTS MADE AT GETTING IV LINE MADE
--- NOTE | 2019-05-21 21:15 | NUR ---
EKG PERFORMED AT BEDSIDE
[2019-05-21 21:18] LABS: BASOPHILS # (AUTO) 0.1 K/uL (0.00-0.22); BASOPHILS % (AUTO) 0.7 % (0.0-2.0); EOSINOPHILS % (AUTO) 0.1 % (0.0-4.0); HEMOGLOBIN 10.8 g/dL (12.0-16.0); LYMPHOCYTES # (AUTO) 0.4 K/uL (2.5-16.5); LYMPHOCYTES % (AUTO) 6.2 % (20.5-51.1); MEAN CORPUSCULAR HEMOGLOBIN 27 pg (27-31); MEAN CORPUSCULAR HGB CONC 32 g/dL (33-37); MEAN CORPUSCULAR VOLUME 83.3 fL (80-94); MONOCYTES # (AUTO) 0.7 K/uL (0.8-1.0); MONOCYTES % (AUTO) 10.1 % (1.7-9.3); NEUTROPHILS # (AUTO) 5.7 K/uL (1.8-7.7); NEUTROPHILS % (AUTO) 82.9 % (42.2-75.2); PLATELET COUNT (AUTO) 295 K/uL (140-450); RED BLOOD CELL COUNT(AUTO) 4.08 MIL/uL (4.20-5.40); RED CELL DISTRIBUTION WIDTH 14.6 % (11.6-13.7); WHITE BLOOD COUNT (AUTO) 6.9 K/uL (4.8-10.8)
[2019-05-21 21:32] LABS: ANION GAP 10.2 (8-16); CARBON DIOXIDE 31.8 mmol/L (21-32); CHLORIDE 105 mmol/L (98-107); CREATININE 0.9 mg/dL (0.6-1.3); GLUCOSE 267 mg/dL (74-106); SODIUM SERUM 143 mmol/L (136-145); UREA NITROGEN, BLOOD 24 mg/dL (7-18)
[2019-05-21 21:35] LABS: PROTHROMBIN TIME 9.9 secs (10.8-13.4)
[2019-05-21 21:38] LABS: ALBUMIN 2.3 g/dL (3.4-5.0); ASPARTATE AMINOTRANSFERASE 14 U/L (15-37); TOTAL BILIRUBIN 0.2 mg/dL (0.0-1.0)
[2019-05-21] MEDS ORDERED: LEVOFLOXACIN 750 MG/D5W PREMIX 150 ML IV ONE (22:00)
[2019-05-21] MEDS ORDERED: cefTRIAXone 1,000 MG VIAL ONE (22:06)
--- NOTE | 2019-05-21 22:34 | NUR ---
PATIENT ALERT AND AWAKE, BREATHING EVEN AND UNLABORED
[2019-05-21 22:53] LABS: APPEARANCE,URINE CLEAR (CLEAR); BILIRUBIN,URINE 1+ (NEGATIVE); BLOOD, URINE 3+ (NEGATIVE); COLOR,URINE YELLOW (YELLOW); LEUKOCYTE ESTERASE ,URINE TRACE (NEGATIVE); NITRITE, URINE NEGATIVE (NEGATIVE); UGLUCOSE NEGATIVE (NEGATIVE)
[2019-05-21 23:13] LABS: RBC,URINE 11-20 (MOD) /HPF (0-5); URINE AMORPHOUS URATE 4+ /HPF (None Seen)
[2019-05-21] MEDS ORDERED: metroNIDAZOLE 500 MG/NS PREMIX 100 ML IV SCH (23:40)
[2019-05-21] MEDS ORDERED: ONDANSETRON 4 MG/2 ML VIAL IM/IVP PRN (23:40)
[2019-05-21] MEDS ORDERED: KETOROLAC 15 MG/ML VIAL IVP PRN (23:40)
[2019-05-21] MEDS ORDERED: ALBUTEROL SULFATE/IPRATROPIU 3 ML SOL IH PRN (23:40)
[2019-05-21] MEDS ORDERED: DOCUSATE SODIUM 100 MG GELCAP PO PRN (23:40)
[2019-05-22 00:35] LABS: MAGNESIUM 2.1 mg/dL (1.8-2.4); PHOSPHORUS 3.7 mg/dL (2.5-4.9)
--- NOTE | 2019-05-22 00:39 | NUR ---
PT LAYING IN BED, RR EVEN AND UNLABORED. SPO2 94% ON 2L NC, RR 20 EVEN AND UNLABORED. PRODUCTIVE COUGH NOTED. ALL NEEDS MET AT THIS TIME.
--- NOTE | 2019-05-22 00:40 | NUR ---
RECEIVED REPORT FROM ELISABETH ER NURSE. PATIENT IS AWAKE, ALERT, AND COOPERATIVE. ADMITTING DIAGNOSIS PNA. RESPIRATION EVEN UNLABORED ON 2L NC O2. NO DISTRESS NOTED. SKIN IS WARM AND DRY. REDNESS ON SACRAL AREA NOTED. IV PATENT AND INTACT. RIGHT EYE BLINDNESS NOTED. HEART RATE REGULAR. S1&S2 NOTED. LUNGS SOUNDS CRACKLES ON AUSCULTATION. BOWEL SOUNDS PRESENT IN ALL 4 QUADRANTS. LAST BM 05/22/19. MRSA SCREEN DONE. VITALS WERE TAKEN. ORIENT PATIENT ROOM, STAFF, AND CALL LIGHT. PLAN OF CARE WAS DISCUSSED. ALL SAFETY MEASURES IN PLACE. BED IS AT LOW POSITION. CALL LIGHT WITHIN REACH AND VERBALIZES ITS USE. WILL CONTINUE TO MONITOR
--- NOTE | 2019-05-22 00:40 | NUR ---
Patient will be admitted to care of DR MCGRATH. Admited to TELE. Will go to room 115. Belongings list completed. Report to NATALIA DOMINGO.
--- NOTE | 2019-05-22 01:00 | NUR ---
PATIENT IV ACCIDENTALLY GOT PULLED WHEN BEING CHANGED. NO ACTIVE BLEEDING SEEN. CANNULA TIP INTACT. WILL INSERT A NEW ONE.
--- NOTE | 2019-05-22 01:20 | NUR ---
INSERTED IV TO THE LEFT FOREARM 24G. TOLERATED IT WELL. WILL CONTINUE TO MONITOR
[2019-05-22] MEDS: NACL 0.9% 1,000 ML IV SCH ×2 (01:22→23:38)
[2019-05-22] MEDS ORDERED: MAGNESIUM HYDROXIDE 2400 MG/30 ML UDC PO PRN (01:30)
[2019-05-22] MEDS ORDERED: DEXTROSE 50% 50 ML SYR IVP PRN (01:30)
[2019-05-22] MEDS ORDERED: SODIUM PHOSPHATE 118 ML ENEM RC PRN (01:30)
[2019-05-22] MEDS ORDERED: BISACODYL 10 MG SUPP RC PRN (01:30)
[2019-05-22 01:43] VITALS: BP 104/48
[2019-05-22] MEDS ORDERED: FUROSEMIDE 40 MG/4 ML VIAL IVP SCH (02:30)
[2019-05-22 04:00] VITALS: BP 127/100
--- NOTE | 2019-05-22 04:15 | NUR ---
VITALS WERE TAKEN. PATIENT IN STABLE CONDITION. NO DISTRESS NOTED. WILL CONTINUE TO MONITOR.
[2019-05-22] MEDS: INSULIN LISPRO SLIDING SCALE 100 UNITS/ML VIAL SUBQ PRN ×4 (06:34→22:21)
[2019-05-22] MEDS: BLOOD GLUCOSE MONITORING 1 DEV DEV FS SCH ×4 (06:34→21:00)
[2019-05-22 06:50] LABS: BASOPHILS % (AUTO) 0.8 % (0.0-2.0); EOSINOPHILS % (AUTO) 0.1 % (0.0-4.0); HEMATOCRIT 30.9 % (36-48); HEMOGLOBIN 9.8 g/dL (12.0-16.0); LYMPHOCYTES # (AUTO) 0.6 K/uL (2.5-16.5); MEAN CORPUSCULAR HEMOGLOBIN 27 pg (27-31); MEAN CORPUSCULAR HGB CONC 32 g/dL (33-37); MEAN CORPUSCULAR VOLUME 84.5 fL (80-94); MONOCYTES # (AUTO) 0.7 K/uL (0.8-1.0); MONOCYTES % (AUTO) 13.1 % (1.7-9.3); PLATELET COUNT (AUTO) 257 K/uL (140-450); RED BLOOD CELL COUNT(AUTO) 3.65 MIL/uL (4.20-5.40); RED CELL DISTRIBUTION WIDTH 14.8 % (11.6-13.7); WHITE BLOOD COUNT (AUTO) 5.4 K/uL (4.8-10.8)
--- NOTE | 2019-05-22 07:05 | NUR ---
ENDORSED PATIENT TO DAY SHIFT NURSE. PATIENT IN STABLE CONDITION.
--- NOTE | 2019-05-22 07:08 | NUR ---
PATIENT IS AAOX3, COOPERATIVE. RESPIRATION EVEN UNLABORED ON 2L NC O2. NO DISTRESS NOTED. VISIBLE CHEST RISE NOTED. ON TELE MONITORING. SKIN IS WARM AND DRY. REDNESS ON SACRAL AREA NOTED. IV PATENT AND INTACT. RIGHT EYE BLINDNESS NOTED. LUNGS SOUNDS CRACKLES ON AUSCULTATION. BOWEL SOUNDS PRESENT IN ALL 4 QUADRANTS. LAST BM 05/22/19. PLAN OF CARE WAS DISCUSSED. ALL SAFETY MEASURES IN PLACE. BED IS AT LOW POSITION. CALL LIGHT WITHIN REACH, BED ALARM IN PLACE. CONTACT AND DROPLET PRECAUTIONS IN PLACE. PATIENT IS STRICT I&O. WILL CONTINUE TO MONITOR.
[2019-05-22 07:32] LABS: ANION GAP 12.7 (8-16); CARBON DIOXIDE 28.7 mmol/L (21-32); CHLORIDE 108 mmol/L (98-107); CREATININE 0.9 mg/dL (0.6-1.3); GLUCOSE 264 mg/dL (74-106); POTASSIUM 4.4 mmol/L (3.5-5.1); SODIUM SERUM 145 mmol/L (136-145); UREA NITROGEN, BLOOD 28 mg/dL (7-18)
[2019-05-22 07:43] LABS: MAGNESIUM 1.9 mg/dL (1.8-2.4)
[2019-05-22 08:00] VITALS: BP 117/60
[2019-05-22] MEDS: ALBUTEROL SULFATE/IPRATROPIU 3 ML SOL IH SCH ×3 (08:05→19:55)
--- NOTE | 2019-05-22 08:25 | NUR ---
DR. MCGRATH AND THE RESIDENT DOCTORS MADE ROUNDS
--- NOTE | 2019-05-22 08:32 | NUR ---
PATIENT HAS BEEN SCREENED AND CATEGORIZED MODERATE NUTRITION RISK. PATIENT WILL BE SEEN WITHIN 3-5 DAYS OF ADMISSION. 05/24/19 05/26/[address]
[2019-05-22] MEDS: DOCUSATE SODIUM 100 MG GELCAP PO SCH ×2 (08:39→22:08)
[2019-05-22] MEDS: FUROSEMIDE 40 MG TAB PO SCH (08:39)
[2019-05-22] MEDS: CARVEDILOL 12.5 MG TAB PO SCH ×2 (08:40→22:09)
[2019-05-22] MEDS: LACTOBACILLUS RHAMNOSUS GG 1 EACH CAP PO SCH (08:40)
[2019-05-22] MEDS: OSELTAMIVIR PHOSPHATE 75 MG CAP PO SCH ×2 (08:40→22:08)
[2019-05-22] MEDS: LOSARTAN 50 MG TAB PO SCH (08:41)
[2019-05-22] MEDS: CLOPIDOGREL 75 MG TAB PO SCH (08:41)
[2019-05-22 08:44] LABS: CHOL/HDL RATIO 2.8 (1-4.5)
[2019-05-22] MEDS: metroNIDAZOLE 500 MG/NS PREMIX 100 ML IV SCH ×2 (08:54→17:03)
--- NOTE | 2019-05-22 08:55 | NUR ---
GIVEN MORNING MEDICATIONS PO. SUBQ HEPARIN IN THE L UA. PLATELET IS 257. GIVEN WITH APPLESAUCE. GIVEN FLAGYL VIA IVPB. ROCEPHIN VIA IVPB. EXPLAINED TO PATIENT MED. PATIENT VERBALIZED UNDERSTANDING. BED IN LOW POSITION. CALL LIGHT IS WITHIN REACH. WILL CONTINUE TO MONITOR
[2019-05-22] MEDS ORDERED: NON-FORMULARY ITEM (Losartan Potassium 1 TAB) PO SCH (09:00)
--- NOTE | 2019-05-22 11:40 | NUR ---
VITAL SIGNS TAKEN. BLOOD GLUCOSE CHECK: 215. WILL GIVE INSULIN
[2019-05-22 12:00] VITALS: BP 146/36
--- NOTE | 2019-05-22 12:52 | NUR ---
GIVEN 4 UNITS OF INSULIN FOR BLOOD GLUCOSE 215 IN THE RIGHT UA. EXPLAINED TO PATIENT MED. PATIENT VERBALIZED UNDERSTANDING. WILL CONTINUE TO MONITOR
--- NOTE | 2019-05-22 13:34 | NUR ---
PATIENT IS SLEEPING AT THIS TIME. NO SIGNS OF DISTRESS NOTED. BED IN LOW POSITION. CALL LIGHT IS WITHIN REACH. WILL CONTINUE TO MONITOR
--- NOTE | 2019-05-22 13:42 | NUR ---
PATIENT IS HAVING BREATHING TREATMENT AT THIS TIME.
[2019-05-22] MEDS: BENZONATATE 100 MG CAPLF PO PRN (14:59)
--- NOTE | 2019-05-22 15:00 | NUR ---
GIVEN BENZONATATE FOR COUGH. EXPLAINED TO PATIENT MED. PATIENT VERBALIZED UNDERSTANDING. WILL CONTINUE TO MONITOR. BED IN LOW POSITION. CALL LIGHT IS WITHIN REACH.
--- NOTE | 2019-05-22 15:51 | NUR ---
DC [age] YRS OLD FEMALE PATIENT [place] [facility]. PT HAS A HX OF CHF, COPD, CAD, CEREBRAL PALSY HISTORY OF C-DIFF AND DM . PT IS WHEELCHAIR-BOUND C/O VOMITING AND DIARRHEA STOOL SENT FOR C-DIFF . CHEST XR SHOWED MILD BIBASILAR ATELECTASIS ADMINISTERED IVF, IV FLAGYL , ROCEPHIN AND LEVAQUIN . PLACE PT ON ISOLATION PER PROTOCOL. TAMIFLU FOR INFLUENZA . DC PLAN [place] GO [place] [facility] [place]. CM TO FOLLOW. Addendum: 05/25/19 at 0958 by Ivan Beasley MAIDA faxed clinical packet to [facility] [phone]. MAIDA contacted Aleena from [facility] [phone] to confirm packet was received. MAIDA attempted to arrange for patient to return to [facility], but Aleena stated that there were no isolation beds available. MAIDA informed Charge Nurse Alejandrina. MAIDA/CM will follow as needed. Addendum: 05/25/19 at 1111 by Ivan Beasley SW was contacted by laron Hayes at [facility] [phone]. Per Abigail, patient is able to return. MAIDA contacted Genesis from [facility] [phone] for authorization. Transportation auth: #[id number] Facility auth: #[id number] MAIDA informed charge nurse Alejandrina to assist in setting transportation. MAIDA/CM will follow up as needed. Addendum: 05/25/19 at 1328 by Ivan THOMAS MAIDA contacted Aleena from [facility] [phone]. Patient will be going to room 14B under attending physician Dr. Ronald Frederick. Addendum: 05/25/19 at 1348 by Ivan THOMAS MAIDA spoke to son Lazaro Donaldson who stated that he refused to return to [facility]. MAIDA faxed clinicals to [facility] and spoke to Melissa [phone]. Melissa stated that patient would be accepted for skilled stay but not fci in room [address] Reyes. MAIDA contacted Lazaro Donaldson [phone] and left voicemail to discuss discharge plan. Addendum: 05/25/19 at 1431 by Ivan THOMAS MAIDA was contacted by Lazaro Donaldson who stated that he is amenable to discharge to [facility]. Charge Nurse Alejandrina was made aware and is arranging transportation. No further needs identified.
[2019-05-22 16:00] VITALS: BP 142/64
--- NOTE | 2019-05-22 16:06 | NUR ---
Benefits Counselor Note: Basic Screen: Yes High Risk DC Screen Chief [place]: SURI MEDELLIN Rosenberg Relationship: SON Pre-Admission Living Arrangements: SNF Prior ADL Needs Assistance Current Home Health Name/Tel: N/A Current DME/02 Name/Tel: WHEELCHAIR, OXYGEN Current Hospice Name/Tel: N/A Current Dialysis Name/Tel: N/A Healthcare Decision Maker: Next of Kin Advance Directive No Physician Orders for Life Sustaining Treatment Form No Patient/Family Have Educational Needs No Discipline: Case Mgt/Social Svcs Tentative Discharge Plan/Destination: SNF/ECF Will require assistance post discharge: No Referred to Research Development Manager: No Tentative Discharge Plan Summary: Patient is a 73-year-old female admitted for pneumonia. Patient has PMHX of congestive heart failure, coronary artery disease, history of CVA, cerebral palsy, type 1 diabetes, essential hypertension dyslipedemia, COPD, right eye blindness, arthritis, and history of cdiff. Patient was admitted from [facility]. SW contacted Donald from [facility] to verify demographics [phone]. Per Donald, patient is chcf and is on a bed hold. Patient needs assistance with all ADLs and is alert at baseline but not oriented. Donald stated that patient is able to communicate her needs through one word answers. PAtient's tentative discharge plan is to return to [facility]. No further needs identified. Signature: KATRIN Abbott Date: May 22, 2019 Time: 16:05
--- NOTE | 2019-05-22 17:04 | NUR ---
GIVEN FLAGYL AND 4 UNITS OF INSULIN FOR BLOOD GLUCOSE 234 IN THE RIGHT UA. EXPLAINED TO PATIENT MEDS. PATIENT VERBALIZED UNDERSTANDING. WILL CONTINUE TO MONITOR
--- NOTE | 2019-05-22 19:12 | NUR ---
ENDORSED PATIENT TO RADIATION PROTECTION ENGINEER NURSE FOR CONTINUITY OF CARE. PATIENT IS IN STABLE CONDITION
--- NOTE | 2019-05-22 19:13 | NUR ---
RECD. SITTING ON BED, AWAKE, A/OX3. RESPIRATION EVEN AND UNLABORED. ON 02 AT 2 LITERS VIA N/C, 02 SAT - 93%. BLIND IN THE RIGHT EYE. NS AT 10 ML/HR INFUSING, LEFT HAND G22. CHIEF OPERATOR HYDROFORMER ASSISTING PATIENT TO EAT DINNER. SAFETY MEASURES ENFORCED. BED IN THE LOWEST POSITION. BED ALARM ON. PLAN OF CARE FOR THE SHIFT DISCUSSED. JUST NOD. DENIES PAIN 0/10.
[2019-05-22 20:00] VITALS: BP 161/59
--- NOTE | 2019-05-22 20:00 | NUR ---
Patient's Plan of Care was discussed and reviewed with PERIOPERATIVE EDUCATOR: DAVID LEE
[2019-05-22] MEDS ORDERED: INSULIN LANTUS 100 UNITS/ML 10 ML VIAL SUBQ SCH (21:00)
--- NOTE | 2019-05-22 21:00 | NUR ---
SLEEPING COMFORTABLY IN BED.
--- NOTE | 2019-05-22 22:00 | NUR ---
SNACK GIVEN FOR THE NIGHT, ATE 100%.
[2019-05-22] MEDS: ATORVASTATIN 20 MG TAB PO SCH (22:08)
[2019-05-22] MEDS: guaiFENesin 600 MG TABER PO SCH (22:10)
[2019-05-23] VITALS: BP 130/46
--- NOTE | 2019-05-23 | NUR ---
SLEEPING COMFORTABLY IN BED.
[2019-05-23] MEDS: metroNIDAZOLE 500 MG/NS PREMIX 100 ML IV SCH ×2 (01:38→09:12)
[2019-05-23 04:00] VITALS: BP 160/73
[2019-05-23] MEDS: BENZONATATE 100 MG CAPLF PO PRN ×2 (04:55→12:04)
--- NOTE | 2019-05-23 04:55 | NUR ---
WITH PERSISTENT DRY COUGHING, MEDICATED WITH TESSALON PERLES ORDERED BY .
--- NOTE | 2019-05-23 06:00 | NUR ---
NO COUGHING NOTED. RESTING IN BED COMFORTABLY.
[2019-05-23] MEDS: BLOOD GLUCOSE MONITORING 1 DEV DEV FS SCH ×4 (06:26→21:18)
[2019-05-23] MEDS: INSULIN LISPRO SLIDING SCALE 100 UNITS/ML VIAL SUBQ PRN ×4 (06:28→20:29)
--- NOTE | 2019-05-23 07:00 | NUR ---
CONDITION REMAIN STABLE. NO LOOSE BM DURING SHIFT, ONLY SOFT SMALL BM. CONDITION REMAIN STABLE. WILL ENDORSE TO AM SHIFT NURSE FOR CONTINUITY OF CARE.
[2019-05-23 07:01] LABS: BASOPHILS % (AUTO) 1.2 % (0.0-2.0); EOSINOPHILS % (AUTO) 0.1 % (0.0-4.0); HEMATOCRIT 32.3 % (36-48); HEMOGLOBIN 10.2 g/dL (12.0-16.0); LYMPHOCYTES # (AUTO) 1.2 K/uL (2.5-16.5); LYMPHOCYTES % (AUTO) 33.4 % (20.5-51.1); MEAN CORPUSCULAR HEMOGLOBIN 27 pg (27-31); MEAN CORPUSCULAR HGB CONC 32 g/dL (33-37); MEAN CORPUSCULAR VOLUME 85.1 fL (80-94); MONOCYTES # (AUTO) 0.5 K/uL (0.8-1.0); NEUTROPHILS # (AUTO) 1.8 K/uL (1.8-7.7); NEUTROPHILS % (AUTO) 50.3 % (42.2-75.2); PLATELET COUNT (AUTO) 241 K/uL (140-450); RED CELL DISTRIBUTION WIDTH 14.9 % (11.6-13.7); WHITE BLOOD COUNT (AUTO) 3.6 K/uL (4.8-10.8)
[2019-05-23 07:27] LABS: MAGNESIUM 2.1 mg/dL (1.8-2.4); PHOSPHORUS 3.9 mg/dL (2.5-4.9)
--- NOTE | 2019-05-23 07:30 | NUR ---
RECEIVED REPORT FROM NIGHT NURSE. PATIENT IS IN BED, AWAKE, ALERT, ORIENTED X3. NO S/S OF DISTRESS NOTED. IV INTACT AND PATENT TO LEFT FOREARM. CALL LIGHT WITHIN REACH. PLANS OF CARE DISCUSSED. BED ALARM ON, BED IN LOW POSITION. SAFETY MEASURES IN PLACE.
[2019-05-23] MEDS: ALBUTEROL SULFATE/IPRATROPIU 3 ML SOL IH SCH ×3 (07:39→19:48)
[2019-05-23 07:49] LABS: ANION GAP 11.1 (8-16); CARBON DIOXIDE 28.2 mmol/L (21-32); CHLORIDE 105 mmol/L (98-107); CREATININE 1.1 mg/dL (0.6-1.3); POTASSIUM 4.3 mmol/L (3.5-5.1); SODIUM SERUM 140 mmol/L (136-145); UREA NITROGEN, BLOOD 30 mg/dL (7-18)
[2019-05-23 08:00] VITALS: BP 147/63
[2019-05-23 08:21] LABS: GLUCOSE 430 mg/dL (74-106)
[2019-05-23] MEDS: DOCUSATE SODIUM 100 MG GELCAP PO SCH ×2 (09:10→20:22)
[2019-05-23] MEDS: CLOPIDOGREL 75 MG TAB PO SCH (09:10)
[2019-05-23] MEDS: FUROSEMIDE 40 MG TAB PO SCH (09:10)
[2019-05-23] MEDS: LACTOBACILLUS RHAMNOSUS GG 1 EACH CAP PO SCH (09:10)
[2019-05-23] MEDS: guaiFENesin 600 MG TABER PO SCH ×2 (09:10→20:23)
[2019-05-23] MEDS: LOSARTAN 50 MG TAB PO SCH (09:11)
[2019-05-23] MEDS: CARVEDILOL 12.5 MG TAB PO SCH ×2 (09:11→20:23)
[2019-05-23] MEDS: OSELTAMIVIR PHOSPHATE 75 MG CAP PO SCH ×2 (09:11→20:22)
--- NOTE | 2019-05-23 09:30 | NUR ---
PATIENT RECEIVED ALL AM MEDICATIONS. PATIENT ABLE TO TOLERATE. NO S/S OF DISTRESS NOTED AT THIS TIME. CALL LIGHT WITHIN REACH. SAFETY MEASURES IN PLACE. O2 @ 2L VIA NC.
--- NOTE | 2019-05-23 10:15 | NUR ---
SCREEN FOR LOW ALEXUS SCALE AT RISK, CONTINUE TO FOLLOW PRESSURE ULCER PREVENTION INTERVENTIONS. -TURN AND REPOSITION PATIENT Q2H, ASSIST IF NEEDED -ASSESS AND MONITOR SKIN CONDITION DURING POSITION CHANGES -OFFLOAD BILATERAL HEELS BY PLACING PILLOWS UNDER CALVES AT ALL TIMES, UNLESS OTHERWISE CONTRAINDICATED -PRESSURE REDISTRIBUTION BY PLACING PILLOWS AND OFFLOADING SACRALCOCCYX -KEEP SKIN CLEAN AND DRY AT ALL TIMES.
--- NOTE | 2019-05-23 11:30 | NUR ---
PATIENT AAOX3. NO S/S OF DISTRESS NOTED AT THIS TIME. CALL LIGHT WITHIN REACH. SAFETY MEASURES IN PLACE. O2 @ 2L VIA NC.
[2019-05-23 12:00] VITALS: BP 102/76
[2019-05-23] MEDS: amLODIPine 5 MG TAB PO SCH (12:04)
--- NOTE | 2019-05-23 12:29 | NUR ---
CALLED PHONE #[phone]. SPOKE TO THE SON SURI MEDELLIN. MADE AWARE THAT HE HAS TO SIGN THE ADMITTING PAPERS FOR HIS MOTHER JESSIE MEDELLIN. INSTRUCTED TO STOP BY ADMITTING OR LOBBY TO SIGN THE PAPERS. HE SAID HE WILL BE HERE LATER TODAY AND SIGN THOSE PAPERS.
--- NOTE | 2019-05-23 13:00 | NUR ---
PATIENT IS ALERT, ORIENTED X3. NO S/S OF DISTRESS NOTED. PATIENT ABLE TO MAKE NEEDS KNOWN. PATIENT IS EATING LUNCH, WITH HOB ELEVATED. SON AT BEDSIDE. UPDATED HIM IN REGARDS TO HIS MOTHER'S CARE. CALL LIGHT WITHIN REACH. BED IN LOW POSITION. BED ALARM ON. SAFETY MEASURES IN PLACE.
--- NOTE | 2019-05-23 15:00 | NUR ---
PATIENT IS ALERT, ORIENTED X3. NO S/S OF DISTRESS NOTED. PATIENT ABLE TO MAKE NEEDS KNOWN. CALL LIGHT WITHIN REACH. BED IN LOW POSITION. BED ALARM ON. SAFETY MEASURES IN PLACE.
[2019-05-23 16:00] VITALS: BP 134/50
--- NOTE | 2019-05-23 17:00 | NUR ---
PATIENT IS ALERT, ORIENTED X3, WATCHING TV. NO S/S OF DISTRESS NOTED. PATIENT ABLE TO MAKE NEEDS KNOWN. O2 ON @ 2L VIA NC. CALL LIGHT WITHIN REACH. BED IN LOW POSITION. BED ALARM ON. SAFETY MEASURES IN PLACE.
--- NOTE | 2019-05-23 18:33 | NUR ---
PT EATING DINNER. NO RESPIRATORY DISTRESS NOTED. WILL CONTINUE TO MONITOR.
--- NOTE | 2019-05-23 19:02 | NUR ---
REPORT GIVEN TO NIGHT NURSE HUNTER. PATIENT IN STABLE CONDITION.
--- NOTE | 2019-05-23 19:03 | NUR ---
RECEIVED PATIENT FROM AM SHIFT IN STABLE CONDITION FOR CONTINUITY OF CARE. TELE PATIENT. ABLE TO MAKE NEEDS KNOWN. RESPIRATIONS EVEN, UNLABORED. IV SITE TO LEFT FOREARM 24G PATENT/INTACT, INFUSING FLUIDS WELL. NO C/O PAIN. NO S/SX ACUTE DISTRESS. DROPLET PRECAUTIONS OBSERVED BY ALL STAFF. CALL LIGHT WITHIN REACH. WILL CONTINUE TO MONITOR.
[2019-05-23 20:00] VITALS: BP 136/54
[2019-05-23] MEDS: ATORVASTATIN 20 MG TAB PO SCH (20:22)
[2019-05-23] MEDS ORDERED: INSULIN LANTUS 100 UNITS/ML 10 ML VIAL SUBQ SCH (21:00)
--- NOTE | 2019-05-23 21:34 | NUR ---
PATIENT CONTINUES IN STABLE CONDITION. NO C/O PAIN. NO S/SX ACUTE DISTRESS. ISOLATION PRECAUTIONS OBSERVED. CALL LIGHT WITHIN REACH. WILL CONTINUE TO MONITOR.
--- NOTE | 2019-05-23 23:15 | NUR ---
MADE ROUNDS. PATIENT ASLEEP, CONTINUES IN STABLE CONDITION. NO C/O PAIN. NO S/S ACUTE DISTRESS. CALL LIGHT WITHIN REACH. WILL CONTINUE TO MONITOR.
[2019-05-23] MEDS: NACL 0.9% 1,000 ML IV SCH (23:38)
[2019-05-24 00:22] VITALS: BP 130/55
--- NOTE | 2019-05-24 01:14 | NUR ---
PATIENT ASLEEP AND IN STABLE CONDITION. RESPIRATIONS EVEN, UNLABORED. NO C/O PAIN. NO S/SX ACUTE DISTRESS. CALL LIGHT WITHIN REACH. WILL CONTINUE TO MONITOR.
--- NOTE | 2019-05-24 02:23 | NUR ---
ASLEEP AND IN STABLE CONDITION. NO C/O PAIN. NO S/SX ACUTE DISTRESS. CALL LIGHT WITHIN REACH. WILL CONTINUE TO MONITOR.
[2019-05-24 04:00] VITALS: BP 138/42
--- NOTE | 2019-05-24 04:17 | NUR ---
PATIENT AWAKE AND WATCHING TV. IN STABLE CONDITION. NO C/O PAIN. NO S/SX ACUTE DISTRESS. CALL LIGHT WITHIN REACH. WILL CONTINUE TO MONITOR.
--- NOTE | 2019-05-24 06:18 | NUR ---
PATIENT CONTINUES IN STABLE CONDITION. DUE MEDS GIVEN. NO C/O PAIN. NO S/SX ACUTE DISTRESS. ISOLATION PRECAUTIONS OBSERVED BY ALL STAFF. CALL LIGHT WITHIN REACH. WILL CONTINUE TO MONITOR.
[2019-05-24] MEDS: BLOOD GLUCOSE MONITORING 1 DEV DEV FS SCH ×4 (06:31→20:57)
[2019-05-24] MEDS: ALBUTEROL SULFATE/IPRATROPIU 3 ML SOL IH SCH ×3 (07:19→19:37)
--- NOTE | 2019-05-24 07:24 | NUR ---
RECEIVED BEDSIDE SHIFT REPORT FROM PATIENT CASE MANAGER NURSE FOR CONTINUATION OF CARE. PATIENT IS RESTING IN BED, LABS ARE CURRENTLY BEING DRAWN BY LAB STAFF. PATIENT IS ORIENTED TO THE CALL LIGHT, VERBALIZED UNDERSTANDING. ON DROPLET PRECAUTION FOR POSITIVE INFLUENZA A. PATIENT DENIES PAIN AT THIS TIME. ENDORSES PRODUCTIVE COUGH. BEDREST, UNABLE TO AMBULATE INDEPENDENTLY. CALL LIGHT ON AND WITHIN REACH, BED IN LOW POSITION, WILL CONTINUE TO MONITOR.
[2019-05-24 07:51] LABS: HEMATOCRIT 32.2 % (36-48); MEAN CORPUSCULAR HEMOGLOBIN 26 pg (27-31); MEAN CORPUSCULAR HGB CONC 31 g/dL (33-37); MEAN CORPUSCULAR VOLUME 83.9 fL (80-94); PLATELET COUNT (AUTO) 232 K/uL (140-450); RED BLOOD CELL COUNT(AUTO) 3.84 MIL/uL (4.20-5.40); RED CELL DISTRIBUTION WIDTH 14.6 % (11.6-13.7); WHITE BLOOD COUNT (AUTO) 5.4 K/uL (4.8-10.8)
[2019-05-24 08:00] VITALS: BP 97/61
[2019-05-24 08:27] LABS: EOSINOPHILS % (MANUAL) 3 % (0-4); LYMPHOCYTES % (MANUAL) 27 % (20-46); MONOCYTES % (MANUAL) 9 % (5-12)
[2019-05-24] MEDS: guaiFENesin 600 MG TABER PO SCH ×2 (08:51→21:03)
[2019-05-24] MEDS: LACTOBACILLUS RHAMNOSUS GG 1 EACH CAP PO SCH (08:53)
[2019-05-24] MEDS: amLODIPine 5 MG TAB PO SCH (08:53)
[2019-05-24] MEDS: DOCUSATE SODIUM 100 MG GELCAP PO SCH ×2 (08:53→21:03)
[2019-05-24] MEDS: CLOPIDOGREL 75 MG TAB PO SCH (08:53)
[2019-05-24] MEDS: LOSARTAN 50 MG TAB PO SCH (08:53)
[2019-05-24] MEDS: OSELTAMIVIR PHOSPHATE 75 MG CAP PO SCH ×2 (08:53→21:03)
[2019-05-24] MEDS: FUROSEMIDE 40 MG TAB PO SCH (08:54)
[2019-05-24] MEDS: CARVEDILOL 12.5 MG TAB PO SCH ×2 (08:54→21:03)
--- NOTE | 2019-05-24 10:00 | NUR ---
PATIENT TOLERATED A.M. MEDICATIONS WELL, IV ROCEPHIN ADMINISTERED FOR PNA. PATIENT CONTINUES TO HAVE A PERSISTENT, DRY, NON-PRODUCTIVE COUGH. PATIENT REPORTS ONLY BEING ABLE TO SEE OUT OF HER LEFT EYE,.RIGHT EYE APPEARS CLOUDY. BED IS IN LOW POSITION, CALL LIGHT ON AND WITHIN REACH. WILL CONTINUE TO MONITOR.
[2019-05-24 10:12] LABS: ANION GAP 15.4 (8-16); CARBON DIOXIDE 26.7 mmol/L (21-32); CHLORIDE 109 mmol/L (98-107); CREATININE 0.8 mg/dL (0.6-1.3); GLUCOSE 121 mg/dL (74-106); POTASSIUM 4.1 mmol/L (3.5-5.1); SODIUM SERUM 147 mmol/L (136-145); UREA NITROGEN, BLOOD 34 mg/dL (7-18)
[2019-05-24 10:18] LABS: MAGNESIUM 2.2 mg/dL (1.8-2.4); PHOSPHORUS 3.3 mg/dL (2.5-4.9)
[2019-05-24] MEDS: INSULIN LISPRO SLIDING SCALE 100 UNITS/ML VIAL SUBQ PRN ×3 (11:56→21:02)
[2019-05-24 12:00] VITALS: BP 126/47
--- NOTE | 2019-05-24 12:30 | NUR ---
BLOOD SUGAR 312, COVERED WITH 8 UNITS OF INSULIN. CONTINUES TO HAVE A PERSISTENT, DRY, UNPRODUCTIVE COUGH WITH NO SPUTUM. PATIENT DENIES PAIN AT THIS TIME, WILL CONTINUE TO MONITOR, EDUCATE ON THE SIGNS AND SYMPTOMS OF DYSREGULATED GLUCOSE LEVELS SUCH INCREASED THIRST, APPETITE, AND URINATION. PATIENT VERBALIZED UNDERSTANDING. WILL CONTINUE TO MONITOR.
--- NOTE | 2019-05-24 14:00 | NUR ---
PER MD'S ORDER BLOOD GLUCOSE CHECKED AND IS 247, PATIENT IS DUE 4 UNITS OF INSULIN. WILL COVER. BED IS IN LOW POSITION, CALL LIGHT ON AND WITHIN REACH, WILL CONTINUE TO MONITOR.
--- NOTE | 2019-05-24 16:01 | NUR ---
PATIENT IS RESTING IN BED, DISCHARGE WAS RESCINDED DUE TO POOR CONTROL OF BLOOD SUGAR. PATIENT CONTINUES TO HAVE A PERSISTENT COUGH, UNPRODUCTIVE, AND DRY. BLOOD SUGAR CHECK TO BE COMPLETED. EDUCATED ON THE IMPORTANCE OF USING THE CALL LIGHT WHEN NEEDED. VERBALIZED UNDERSTANDING, WILL CONTINUE TO MONITOR.
[2019-05-24] MEDS: HYDRAGUARD CREAM TP SCH (16:51)
--- NOTE | 2019-05-24 17:30 | NUR ---
PATIENT IS RESTING IN BED, CALL LIGHT ON AND WITHIN REACH, DENIES PAIN AT THIS TIME, OBSERVED CHEST RISE AND FALL, EDUCATED ON THE IMPORTANCE OF USING THE INCENTIVE SPIROMETER. BED IS IN LOW POSITION. WILL CONTINUE TO MONITOR.
[2019-05-24] MEDS ORDERED: ROC2I IV (17:35)
[2019-05-24] MEDS ORDERED: TAM75 PO (17:35)
--- NOTE | 2019-05-24 19:10 | NUR ---
BEDSIDE SHIFT REPORT GIVEN TO CONSTRUCTION CONTROLLER NURSE FOR CONTINUATION OF CARE.
--- NOTE | 2019-05-24 19:16 | NUR ---
RECEIVED PATIENT IN STABLE CONDITION FROM AM SHIFT NURSE FOR CONTINUITY OF CARE. ABLE TO MAKE NEEDS KNOWN. RESPIRATIONS EVEN, UNLABORED. CONTINUES ON O2 2LPM NC. SKIN WARM, DRY TO TOUCH. IV SITE TO LEFT FOREARM 24G INTACT/PATENT, INFUSING FLUIDS WELL. NO C/O PAIN. NO S/SX ACUTE DISTRESS. ISOLATION PRECAUTIONS OBSERVED. CALL LIGHT WITHIN REACH. WILL CONTINUE TO MONITOR.
--- NOTE | 2019-05-24 19:17 | NUR ---
RECEIVED REPORT FROM AM NURSE, ON ROOM AIR WITH SP02 OF 94% AND OCCASIONAL COUGH NOTED. FOR TRANSFER TO [facility]. NO RESPIRATORY DISTRESS NOTED AT THIS TIME; HR 75; 144/67 TEMP 98.0 NO FEVER. WILL CONTINUE TO MONITOR PT Addendum: 05/25/19 at 3144 by Agustina Morrow RN DELETE NOTE
--- NOTE | 2019-05-24 19:42 | NUR ---
RECEIVED PT ON ROOM AIR WITH SP02 OF 94% AND WHEEZING BREATH SOUNDS. NO RESPIRATORY DISTRESS NOTED AT THIS TIME; HR 74, RR 18. HHN TX GIVEN ORDERED WITH NO ADVERSE REACTION. WILL CONTINUE TO MONITOR PT
[2019-05-24] MEDS ORDERED: INSULIN NPH HUM/REG INSULIN HM 100 UNIT/ML 10 ML VIAL SUBQ SCH (21:00)
[2019-05-24] MEDS ORDERED: INSULIN LANTUS 100 UNITS/ML 10 ML VIAL SUBQ SCH (21:00)
--- NOTE | 2019-05-24 21:00 | NUR ---
PATIENT AWAKE IN BED. NO S/SX ACUTE DISTRESS. NO C/O PAIN. CALL LIGHT WITHIN REACH. WILL CONTINUE TO MONITOR.
[2019-05-24] MEDS: ATORVASTATIN 20 MG TAB PO SCH (21:08)
[2019-05-24] MEDS: BENZONATATE 100 MG CAPLF PO PRN (21:12)
--- NOTE | 2019-05-24 22:00 | NUR ---
PATIENT ASLEEP IN BED. NO S/SX ACUTE DISTRESS. NO C/O PAIN. CALL LIGHT WITHIN REACH. WILL CONTINUE TO MONITOR.
[2019-05-24] MEDS: NACL 0.9% 1,000 ML IV SCH (22:30)
[2019-05-25] VITALS: BP 149/78
--- NOTE | 2019-05-25 01:10 | NUR ---
MADE ROUNDS. PATIENT ASLEEP. NO S/SX ACUTE DISTRESS. NO C/O PAIN. CALL LIGHT WITHIN REACH. WILL CONTINUE TO MONITOR.
[2019-05-25] MEDS: HYDRAGUARD CREAM TP SCH ×2 (03:00→12:14)
--- NOTE | 2019-05-25 03:34 | NUR ---
MADE ROUNDS. PATIENT ASLEEP. NO S/SX ACUTE DISTRESS. NO C/O PAIN. CALL LIGHT WITHIN REACH. WILL CONTINUE TO MONITOR.
--- NOTE | 2019-05-25 04:00 | NUR ---
PATIENT ASLEEP IN BED. NO S/SX ACUTE DISTRESS. NO C/O PAIN. CALL LIGHT WITHIN REACH. WILL CONTINUE TO MONITOR.
--- NOTE | 2019-05-25 06:01 | NUR ---
PATIENT'S BLOOD GLUCOSE WAS 19 MG/GL. DEXTROSE GIVEN ORDERED. BLOOD SUGAR NOW 173 MG/DL. PATIENT IS ALERT AND ORIENTED. NO S/SX ACUTE DISTRESS. NO C/O PAIN. CALL LIGHT WITHIN REACH. WILL CONTINUE TO MONITOR.
[2019-05-25 07:24] LABS: BASOPHILS % (AUTO) 0.4 % (0.0-2.0); EOSINOPHILS # (AUTO) 0.1 K/uL (0-0.4); EOSINOPHILS % (AUTO) 1.2 % (0.0-4.0); HEMOGLOBIN 11.7 g/dL (12.0-16.0); LYMPHOCYTES # (AUTO) 1.5 K/uL (2.5-16.5); MEAN CORPUSCULAR HEMOGLOBIN 27 pg (27-31); MEAN CORPUSCULAR HGB CONC 32 g/dL (33-37); MEAN CORPUSCULAR VOLUME 82.4 fL (80-94); MONOCYTES # (AUTO) 0.5 K/uL (0.8-1.0); MONOCYTES % (AUTO) 6.8 % (1.7-9.3); NEUTROPHILS # (AUTO) 4.9 K/uL (1.8-7.7); NEUTROPHILS % (AUTO) 69.6 % (42.2-75.2); PLATELET COUNT (AUTO) 291 K/uL (140-450); RED BLOOD CELL COUNT(AUTO) 4.37 MIL/uL (4.20-5.40); RED CELL DISTRIBUTION WIDTH 14.3 % (11.6-13.7)
[2019-05-25] MEDS: ALBUTEROL SULFATE/IPRATROPIU 3 ML SOL IH SCH ×2 (07:26→14:18)
[2019-05-25 07:30] LABS: PHOSPHORUS 2.9 mg/dL (2.5-4.9)
--- NOTE | 2019-05-25 07:38 | NUR ---
ENDORSED PATIENT IN STABLE CONDITION TO AM SHIFT NURSE FOR CONTINUITY OF CARE.
[2019-05-25 07:39] LABS: MAGNESIUM 2.1 mg/dL (1.8-2.4)
--- NOTE | 2019-05-25 07:40 | NUR ---
Received report from pm nurse Kathleen. Pt resting in bed, awake, receiving breathing tx with RT at bedside. Call light within reach.
[2019-05-25] MEDS: BLOOD GLUCOSE MONITORING 1 DEV DEV FS SCH ×3 (07:41→16:30)
[2019-05-25 07:42] LABS: CARBON DIOXIDE 32.3 mmol/L (21-32); CHLORIDE 107 mmol/L (98-107); CREATININE 0.6 mg/dL (0.6-1.3); POTASSIUM 3.3 mmol/L (3.5-5.1); SODIUM SERUM 146 mmol/L (136-145); UREA NITROGEN, BLOOD 25 mg/dL (7-18)
[2019-05-25 07:49] LABS: GLUCOSE 22 mg/dL (74-106)
[2019-05-25 08:00] VITALS: BP 112/73
[2019-05-25] MEDS: FUROSEMIDE 40 MG TAB PO SCH (09:16)
[2019-05-25] MEDS: OSELTAMIVIR PHOSPHATE 75 MG CAP PO SCH (09:16)
[2019-05-25] MEDS: LOSARTAN 50 MG TAB PO SCH (09:17)
[2019-05-25] MEDS: CLOPIDOGREL 75 MG TAB PO SCH (09:17)
[2019-05-25] MEDS: CARVEDILOL 12.5 MG TAB PO SCH (09:17)
[2019-05-25] MEDS: DOCUSATE SODIUM 100 MG GELCAP PO SCH (09:18)
[2019-05-25] MEDS: LACTOBACILLUS RHAMNOSUS GG 1 EACH CAP PO SCH (09:18)
[2019-05-25] MEDS: guaiFENesin 600 MG TABER PO SCH (09:18)
[2019-05-25] MEDS: amLODIPine 5 MG TAB PO SCH (09:18)
--- NOTE | 2019-05-25 09:30 | NUR ---
Pt resting in bed, awake, watching TV. Pt denies any discomfort, intermittent non-productive cough noted, no signs of distress. Call light within reach.
[2019-05-25] MEDS ORDERED: POTASSIUM CHLORIDE 10 MEQ TABER PO SCH (10:25)
[2019-05-25] MEDS ORDERED: LACT1.4C PO (10:59)
[2019-05-25] MEDS: INSULIN LISPRO SLIDING SCALE 100 UNITS/ML VIAL SUBQ PRN ×2 (12:23→17:54)
--- NOTE | 2019-05-25 14:00 | NUR ---
Report given to Pauline DOMINGO from [facility].
--- NOTE | 2019-05-25 14:30 | NUR ---
Received confirmation from Ivan that pt's son Lazaro has agreed to discharge pt back to [facility]. Awaiting transportation confirmation from charge nurse.
[2019-05-25 16:00] VITALS: BP 142/75
--- NOTE | 2019-05-25 16:30 | NUR ---
Per charge nurse, [facility] will bulk picker pt @ 8pm. Pauline from [facility] notified.
--- NOTE | 2019-05-25 17:30 | NUR ---
Left hand IV pulled out by pt by mistake. Site with min bleeding covered with dry gauze and tape. Attempted x2 to reinsert new IV but unsuccessful. Will reattempt after dinner per pt request.
--- NOTE | 2019-05-25 19:16 | NUR ---
Report given to pm nurse Agustina. Pt stable.
--- NOTE | 2019-05-25 19:17 | NUR ---
RECEIVED REPORT FROM AM NURSE, ON ROOM AIR WITH SP02 OF 94% AND OCCASIONAL COUGH NOTED. FOR TRANSFER TO SNF. NO RESPIRATORY DISTRESS NOTED AT THIS TIME; HR 75; 144/67 TEMP 98.0 NO FEVER. WILL CONTINUE TO MONITOR PT
--- NOTE | 2019-05-25 19:30 | NUR ---
CHECKED ON PATIENT; PATIENT RESTING, SAYING SHE IS OK AND WAITING FOR [facility]
--- NOTE | 2019-05-25 20:32 | NUR ---
PT TRANSFERRED TO [facility] STILL [place] ON THE LEFT FA. W/ SACRAL REDNESS BUT INTACT. SHE IS TO CONTINUE IV ANTIBIOTICS AT [facility]. CLEANED IV OUT OF ROOM; TOOK OUT ID BAND OF PT. [facility] W/ 2 TRANSPORTERS [place]ED [place]
[2019-05-25] MEDS ORDERED: INSULIN LANTUS 100 UNITS/ML 10 ML VIAL SUBQ SCH (21:00)
== END 2019-05-25 20:32 | DRG 291 ==
LOC: MED 19:21 → MTU 23:49
PROVIDERS: ADMIT General Practice; ATTEND General Practice
DX: I11.0 Hypertensive heart disease with heart failure (principal); J10.00 Influenza due to other identified influenza virus with unspecified type of pneumonia; J96.22 Acute and chronic respiratory failure with hypercapnia; E43 Unspecified severe protein-calorie malnutrition; J44.0 Chronic obstructive pulmonary disease with (acute) lower respiratory infection; J98.11 Atelectasis; N39.0 Urinary tract infection, site not specified; I50.43 Acute on chronic combined systolic (congestive) and diastolic (congestive) heart failure; E78.00 Pure hypercholesterolemia, unspecified; H54.61 Unqualified visual loss, right eye, normal vision left eye; G80.9 Cerebral palsy, unspecified; I25.10 Atherosclerotic heart disease of native coronary artery without angina pectoris; M19.90 Unspecified osteoarthritis, unspecified site; E86.0 Dehydration; E10.9 Type 1 diabetes mellitus without complications; R31.9 Hematuria, unspecified; I45.10 Unspecified right bundle-branch block; I25.2 Old myocardial infarction; Z68.32 Body mass index [BMI] 32.0-32.9, adult; Z86.73 Personal history of transient ischemic attack (TIA), and cerebral infarction without residual deficits; Z90.49 Acquired absence of other specified parts of digestive tract; Z95.1 Presence of aortocoronary bypass graft; Z88.5 Allergy status to narcotic agent; Z88.8 Allergy status to other drugs, medicaments and biological substances; Z88.6 Allergy status to analgesic agent; Z91.041 Radiographic dye allergy status; Z79.899 Other long term (current) drug therapy; Z99.3 Dependence on wheelchair
CPT/HCPCS: 36415; 71045; 76770; 80048; 80053; 81001; 82948; 83036; 83605; 83735; 83880; 84100; 84134; 84443; 84484; 85025; 85610; 85730; 87040; 87081; 87804; 93005; 94640; 96365; 96368; 99285; J0696; J1644; J1815; J1940; J1956; J3490; J7030; J7060; J7620; Q0092

== ENCOUNTER 2020-10-01 19:01 | Emergency (ER) | payer OTHER ==
[~2020-10-01] VITALS: Ht 170.2 cm; Wt 90.7 kg
[2020-10-01 19:01] VITALS: BP 146/73
[~2020-10-01 19:01] MED LIST changes: -ASCO500T45 PO; -CLOT21CR6 VG; -INSU100S54 SC; +LACT1.4C PO; -LACT25CA PO; -MULT-298 PO; +ROC2I IV; -SIME1SOL PO; +TAM75 PO
--- NOTE | 2020-10-01 19:25 | NUR ---
See patient assessment for more information.
--- NOTE | 2020-10-01 20:42 | NUR ---
Labs drawn and handed to lab personnel.
[2020-10-01 21:29] LABS: BASOPHILS # (AUTO) 0.1 K/uL (0.00-0.22); BASOPHILS % (AUTO) 0.8 % (0.0-2.0); EOSINOPHILS # (AUTO) 0.3 K/uL (0-0.4); EOSINOPHILS % (AUTO) 3.2 % (0.0-4.0); HEMATOCRIT 32.7 % (36-48); HEMOGLOBIN 10.7 g/dL (12.0-16.0); LYMPHOCYTES # (AUTO) 1.9 K/uL (2.5-16.5); LYMPHOCYTES % (AUTO) 21.6 % (20.5-51.1); MEAN CORPUSCULAR HEMOGLOBIN 28 pg (27-31); MEAN CORPUSCULAR HGB CONC 33 g/dL (33-37); MEAN CORPUSCULAR VOLUME 84.5 fL (80-94); MONOCYTES # (AUTO) 0.7 K/uL (0.8-1.0); MONOCYTES % (AUTO) 7.9 % (1.7-9.3); NEUTROPHILS % (AUTO) 66.5 % (42.2-75.2); PLATELET COUNT (AUTO) 406 K/uL (140-450); RED BLOOD CELL COUNT(AUTO) 3.87 MIL/uL (4.20-5.40); RED CELL DISTRIBUTION WIDTH 16.4 % (11.6-13.7)
[2020-10-01 21:44] LABS: ANION GAP 12.2 (8-16); CARBON DIOXIDE 29.3 mmol/L (21-32); CHLORIDE 108 mmol/L (98-107); GLUCOSE 228 mg/dL (74-106); POTASSIUM 4.5 mmol/L (3.5-5.1); SODIUM SERUM 145 mmol/L (136-145); UREA NITROGEN, BLOOD 42 mg/dL (7-18)
[2020-10-01 21:59] LABS: ALBUMIN 2.3 g/dL (3.4-5.0); ASPARTATE AMINOTRANSFERASE 13 U/L (15-37); TOTAL BILIRUBIN 0.2 mg/dL (0.0-1.0)
[2020-10-01] MEDS ORDERED: NACL 0.9% 500 ML IV ONE (22:10)
--- NOTE | 2020-10-01 22:12 | NUR ---
Female Activities Manager accompanied female patient for Rectal Exam.
--- NOTE | 2020-10-01 23:50 | NUR ---
PT TAKEN TO ER BED 12 VIA [place].
--- NOTE | 2020-10-01 23:51 | NUR ---
Patient transferred to the care of JOSE L Magana
--- NOTE | 2020-10-02 03:30 | NUR ---
Patient appears to be resting comfortably in bed. Vital Signs within normal limits. Respirations even and unlabored.
--- NOTE | 2020-10-02 07:15 | NUR ---
GIVEN REPORT TO NEDRA DOMINGO, FOR CONTINUITY OF CARE
--- NOTE | 2020-10-02 07:16 | NUR ---
Report received from JOSE L Magana; care assumed.
--- NOTE | 2020-10-02 07:18 | NUR ---
CALLED [facility] REGARDING TRANSPORT INFORMATION; SPOKE TO DYLAN
--- NOTE | 2020-10-02 09:07 | NUR ---
Patient resting comfortable in bed, side rail up, bed locked and call light within reach.
--- NOTE | 2020-10-02 09:50 | NUR ---
Patient had an episode of urine and bowel incontinence. Bed bath provided, linen changed and diaper changed.
[2020-10-02 10:55] VITALS: BP 181/84
--- NOTE | 2020-10-02 10:55 | NUR ---
Patient discharged with v/s stable. Written and verbal after care instructions given and explained. Patient verbalized understanding. Ambulance Transport to intermediate. All questions addressed prior to discharge. Advised to follow up with PMD.
== END 2020-10-02 10:55 ==
LOC: MED 19:01
DX: S32.009A Unspecified fracture of unspecified lumbar vertebra, initial encounter for closed fracture (principal); E86.0 Dehydration; F03.90 Unspecified dementia, unspecified severity, without behavioral disturbance, psychotic disturbance, mood disturbance, and anxiety; E11.65 Type 2 diabetes mellitus with hyperglycemia; X58.XXXA Exposure to other specified factors, initial encounter; Y93.89 Activity, other specified; Y92.89 Other specified places as the place of occurrence of the external cause; Y99.8 Other external cause status
CPT/HCPCS: 36415; 74176; 80053; 85025; 96360; 99285; J7030

== ENCOUNTER 2022-08-27 06:52 | Emergency (ER) | payer OTHER ==
[~2022-08-27] VITALS: Ht 157.5 cm; Wt 113.4 kg
[2022-08-27 06:56] VITALS: BP 151/63
--- NOTE | 2022-08-27 07:02 | NUR ---
acc 156 blood sugar
--- NOTE | 2022-08-27 07:09 | NUR ---
PT DAVIDSON ALS. TAKEN TO BED 7
--- NOTE | 2022-08-27 07:33 | NUR ---
76 y/o female biba from [facility], pt initial c/o was aloc with gcs of 6, bs of 32. per amr, nurses at facility were attempting to feed pt, but pt refusing to eat. family requested she be brought in for evaluation. pt is now at baseline of 14, glucose enroute was 82. pt now at a glucose of 147, c/o general body pain. skin intact/cool/pale. pt a&ox3, does not ambulate, general body weakness. pt is full code pmh: metabolic encephalopathy, htn, myocardial infarction, respiratory failure, uti, dm2, alzheimers allergy: tylenol, ampicillin, aspirin, codeine, iodine
[2022-08-27] MEDS: BLOOD GLUCOSE MONITORING 1 DEV DEV FS SCH ×7 (07:37→13:10)
[2022-08-27 08:46] LABS: ANION GAP 9.5 (8-16); CARBON DIOXIDE 30.4 mmol/L (21-32); CHLORIDE 106 mmol/L (98-107); GLUCOSE 174 mg/dL (74-106); POTASSIUM 3.9 mmol/L (3.5-5.1); SODIUM SERUM 142 mmol/L (136-145); UREA NITROGEN, BLOOD 30 mg/dL (7-18)
[2022-08-27 08:48] LABS: BASOPHILS # (AUTO) 0.2 K/uL (0.00-0.22); BASOPHILS % (AUTO) 0.6 % (0.0-2.0); EOSINOPHILS # (AUTO) 0.3 K/uL (0-0.4); EOSINOPHILS % (AUTO) 1.1 % (0.0-4.0); HEMATOCRIT 37.8 % (36-48); HEMOGLOBIN 12.3 g/dL (12.0-16.0); LYMPHOCYTES # (AUTO) 1.6 K/uL (2.5-16.5); LYMPHOCYTES % (AUTO) 6.6 % (20.5-51.1); MEAN CORPUSCULAR HEMOGLOBIN 27 pg (27-31); MEAN CORPUSCULAR HGB CONC 33 g/dL (33-37); MEAN CORPUSCULAR VOLUME 83.9 fL (80-94); MONOCYTES # (AUTO) 1.1 K/uL (0.8-1.0); MONOCYTES % (AUTO) 4.6 % (1.7-9.3); NEUTROPHILS # (AUTO) 21.4 K/uL (1.8-7.7); NEUTROPHILS % (AUTO) 87.1 % (42.2-75.2); PLATELET COUNT (AUTO) 421 K/uL (140-450); RED BLOOD CELL COUNT(AUTO) 4.51 MIL/uL (4.20-5.40); RED CELL DISTRIBUTION WIDTH 15.6 % (11.6-13.7); WHITE BLOOD COUNT (AUTO) 24.6 K/uL (4.8-10.8)
--- NOTE | 2022-08-27 10:33 | NUR ---
Urine sample walked to laboratory.
[2022-08-27 10:45] LABS: APPEARANCE,URINE CLEAR (CLEAR); BILIRUBIN,URINE NEGATIVE (NEGATIVE); BLOOD, URINE NEGATIVE (NEGATIVE); COLOR,URINE YELLOW (YELLOW); LEUKOCYTE ESTERASE ,URINE NEGATIVE (NEGATIVE); NITRITE, URINE NEGATIVE (NEGATIVE); UGLUCOSE TRACE (NEGATIVE)
--- NOTE | 2022-08-27 17:46 | NUR ---
Patient discharged with v/s stable. Written and verbal after care instructions given and explained. Patient verbalized understanding. Ambulatory with steady gait. All questions addressed prior to discharge. Advised to follow up with PMD.
[2022-08-27 17:47] VITALS: BP 159/62
== END 2022-08-27 17:45 ==
LOC: MED 06:52
DX: E11.649 Type 2 diabetes mellitus with hypoglycemia without coma (principal); D72.829 Elevated white blood cell count, unspecified; I50.9 Heart failure, unspecified; I10 Essential (primary) hypertension; N18.9 Chronic kidney disease, unspecified; Z86.73 Personal history of transient ischemic attack (TIA), and cerebral infarction without residual deficits; Z88.8 Allergy status to other drugs, medicaments and biological substances; Z91.040 Latex allergy status; Z88.5 Allergy status to narcotic agent; Z79.4 Long term (current) use of insulin; Z79.82 Long term (current) use of aspirin; Z79.899 Other long term (current) drug therapy
CPT/HCPCS: 36415; 71045; 80048; 81003; 83605; 85025; 87040; 99284; Q0092